=== PATIENT | male | born 1955 | race Caucasian/White ===

== ENCOUNTER 2018-09-02 14:23 | Inpatient (IN) ==
[2018-09-02] MEDS ORDERED: Ipratropium/Albuterol Neb 3 ML ONE (14:37)
[2018-09-02] MEDS ORDERED: Nitroglycerin 25 MG/250 ML INFUS..BTL IVC ONE (14:41)
[2018-09-02 14:48] LABS: ABG Base Excess -10 mEq/L (-2 to 3); ABG HCO3 20 mEq/L (21-27); ABG Oxygen Saturation 100 % (95-98); ABG PCO2 55 mmHg (35-45); ABG PH 7.17 pH Units (7.32-7.45); ABG PO2 314 mmHg (85-104); ABG TCO2 21 mEq/L (20-26)
[2018-09-02] MEDS ORDERED: Furosemide 40 MG/4 ML VIAL ONE (14:52)
[2018-09-02] MEDS ORDERED: Isovue-370 500 ML INFUS..BTL IV ONE ×2 (15:39→16:09)
[2018-09-02] MEDS ORDERED: Propofol 500 MG/50 ML INFUS..BTL ONE (15:54)
[2018-09-02 16:00] LABS: Basophils # 0.1 K/mcL (0.0-0.2); Basophils % 0.7 %; Eosinophils # 0.1 K/mcL (0.0-0.6); Eosinophils % 0.4 %; Immature Granulocytes % 1.3 % (0-4); Lymphocytes # 5.5 K/mcL (0.6-4.6); Lymphocytes % 35.9 %; Mean Corpuscular HGB Conc 34.3 g/dL (31.6-35.5); Mean Corpuscular Hemoglobin 33.7 pg (28.0-33.3); Mean Corpuscular Volume 98.2 fL (83.0-100.0); Mean Platelet Volume 10.9 fL (9.4-12.4); Monocytes % 6.4 %; Neutrophils # 8.5 K/mcL (1.6-8.9); Platelet Count 246 K/mcL (140-400); Red Blood Count 5.64 M/mcL (4.19-5.50); Red Cell Distribution Width 12.1 % (11.5-14.5); Segmented Neutrophils % 55.3 %
[2018-09-02 16:02] LABS: Hematocrit 55.4 % (37.5-50.1)
[2018-09-02 16:08] LABS: Prothrombin Time 10.7 Seconds (9.4-12.1)
[2018-09-02 16:11] LABS: Activated Partial Thrombo Time 31.1 Seconds (26.0-36.0)
--- NOTE | 2018-09-02 16:17 | Emergency Department Note ---
Disposition Clinical Impression: Hypertensive crisis, Pancreatic lesion, Atherosclerosis, Elevated troponin Pulmonary edema Qualifiers: Chronicity: acute Qualified Code(s): J81.0 - Acute pulmonary edema Acute respiratory failure Qualifiers: Respiratory failure complication: hypercapnia Qualified Code(s): J96.02 - Acute respiratory failure with hypercapnia Aortic aneurysm Qualifiers: Aortic location: abdominal aorta Presence of rupture: without rupture Qualified Code(s): I71.4 - Abdominal aortic aneurysm, without rupture Disposition: Admitted As Inpatient Condition: Critical Referrals: NONE,PCP [Primary Care Provider] - Forms: ED Satisfaction Letter SOB HPI - General Chief Complaint: ED Shortness of Breath/Dyspnea Stated Complaint: SHERI Time Seen by Provider: 09/02/18 14:24 Source: patient, EMS Mode of arrival: EMS Limitations: no limitations Nursing Notes Reviewed: Yes Vital Signs Reviewed: Yes - History of Present Illness 63-year-old male presents to the ER in respiratory distress via EMS. Called to bedside immediately upon patient arrival. The patient is noted to be in significant respiratory distress. The patient was moved to one of the resuscitation rooms. Nonrebreather applied. The patient reports acute shortness of breath developing this morning. He has a past history of hypertension for which she is noncompliant with his medications as well as smoking. He does not wear oxygen at home. Denies any prior history of CAD. No other complaints. Pt Subjective Complaint: shortness of breath Onset (ago): hour(s) Severity: severe Consistency/Duration: constant Improves with: nothing Worsens with: nothing Associated symptoms: Reports: denies other symptoms Cough present: No - Related Data Home oxygen amount: none Allergies Allergy/AdvReac Type Severity Reaction Status Date / Time No Known Allergies Allergy Verified 09/02/18 14:48 All systems ED: reviewed and negative except as stated. Constitutional: Denies: fever Cardiovascular: Denies: chest pain Respiratory: Reports: dyspnea. Denies: cough Gastrointestinal: Denies: abdominal pain, nausea, vomiting Past Medical History - Past Medical History Attestation: Yes The following information was validated with the patient. Source: patient Medical history: Reports: hypertension Psychiatric history: Reports: no psych history - Social History Smoking Status: Current every day smoker Smokeless Tobacco Status: No Alcohol use: Reports: occasionally, recent Drug use: Reports: unknown Physical Exam - General Limitations: no limitations General appearance: alert, in distress - Head Head exam: atraumatic, normocephalic, normal inspection - Eye Eye exam: Present: normal appearance - ENT ENT exam: normal exam - Neck Neck exam: Present: normal inspection - Chest Chest inspection: Present: normal inspection, symmetric chest wall rise - Respiratory Respiratory exam: Present: respiratory distress, accessory muscle use, other (Poor air exchange. Tripoding.) - Cardiovascular Cardiovascular exam: Present: normal rhythm, tachycardia, normal heart sounds - Abdominal Exam Abdominal exam: Present: soft, Non-Tender. Absent: tenderness, distention, guarding - Extremities Exam Extremities exam: Present: normal inspection, full ROM, other (Peripheral cyanosis) - Expanded Upper Extremity Exam Shoulder exam: Present: normal inspection, full ROM Arm exam: Present: normal inspection, full ROM Elbow exam: Present: normal inspection, full ROM Forearm/Wrist exam: Present: normal inspection, full ROM Hand exam: Present: normal inspection, full ROM Vascular exam: Normal: radial pulse - Expanded Lower Extremity Exam Hip/Pelvis exam: Present: normal inspection, full ROM Upper leg exam: Present: normal inspection, full ROM Knee exam: Present: normal inspection, full ROM Lower leg exam: Present: normal inspection, full ROM Ankle exam: Present: normal inspection, full ROM Foot/toe exam: Present: normal inspection, full ROM - Skin Skin exam: Present: warm, dry Course Course Narrative: Patient seen and examined immediately. Significant respiratory distress. Patient moved to resuscitation room. Respiratory therapy was called down for BiPAP. The patient was started on IV nitroglycerin after chest x-ray demonstrates pulmonary edema. Hypertension was aggressively managed. The patient did not improve after several minutes on BiPAP. ABG demonstrates respiratory acidosis. At this point the patient appeared to be tiring out and the decision was made to intubate. This was achieved on first pass without any complication. Plan to obtain an EKG, confirmatory chest x-ray, CTA imaging for evaluation of PE and dissection as well as labs. Patient given 40 mg of IV Lasix as well. The patient will be admitted to the intensive care unit for acute respiratory failure and acute pulmonary edema. - Reevaluation(s) Reevaluation #1: Patient's blood pressure has been improving with IV nitroglycerin. Awaiting CT imaging. Plan to admit to the intensive care unit. Reevaluation #2: Patient hypotensive with both propofol and nitroglycerin. Holding nitroglycerin and giving a small 250 mL bolus. Vital Signs Pulse Rate 128 09/02/18 14:34 Respiratory Rate 40 09/02/18 14:34 Blood Pressure 164/119 09/02/18 14:34 O2 Sat by Pulse Oximetry 97 09/02/18 14:34 Temperature 97 F L 09/02/18 14:48 Pulse Rate 113 09/02/18 18:39 Respiratory Rate 20 09/02/18 18:39 Blood Pressure 55/41 09/02/18 18:39 O2 Sat by Pulse Oximetry 96 09/02/18 18:39 Oxygen Delivery Oxygen Delivery Ventilator Procedures - Intubation sedative: Etomidate Mg Given: 20 paralytic: Rocuronium Mg Given: 100 Laryngoscope: Marylu ET Tube Size: 7.5 Tube Secured Depth (cm): 22 Tube Secured Location: lips Tube Placement Confirmation: visualized tube passing through cords, equal breath sounds bilaterally, no breath sounds over epigastrium, confirmation by capnometry Patient Tolerated Procedure: well Intubation Complications: none Additional Comments: Intubation performed by medical student under direct supervision Shortness of Breath/Dyspnea - MDM Narrative Medical decision making narrative: 63-year-old male presenting in respiratory distress. Concern for acute pulmonary edema given his noncompliance with his antihypertensives. Patient required intubation for respiratory failure. CT imaging demonstrates an aortic aneurysm without evidence of dissection. He is also noted to have an indiscrimi sneha lesion on his pancreas that will require follow-up. Labs demonstrated an elevated troponin as well as BNP felt to be demand in the setting of hypertensive crisis. Patient's hypertension has improved significantly with IV nitroglycerin. The patient is admitted to the intensive care unit for further monitoring. - Lab Data Lab results reviewed: Yes I reviewed the patient's lab results. Result diagrams: 09/02/18 14:42 09/02/18 14:42 Lab Results 09/02/18 09/02/18 09/02/18 Range/Units 14:42 14:42 14:42 WBC 15.4 H (4.3-11.1) K/mcL RBC 5.64 H (4.19-5.50) M/mcL Hgb 19.0 H (12.9-16.9) g/dL Hct 55.4 H (37.5-50.1) % MCV 98.2 (83.0-100.0) fL MCH 33.7 H (28.0-33.3) pg MCHC 34.3 (31.6-35.5) g/dL RDW 12.1 (11.5-14.5) % Plt Count 246 (140-400) K/mcL MPV 10.9 (9.4-12.4) fL Immature Gran % 1.3 (0-4) % Seg Neutrophils % 55.3 % Lymphocytes % 35.9 % Monocytes % 6.4 % Eosinophils % 0.4 % Basophils % 0.7 % Neutrophils # 8.5 (1.6-8.9) K/mcL Lymphocytes # 5.5 H (0.6-4.6) K/mcL Monocytes # 1.0 (0.0-1.3) K/mcL Eosinophils # 0.1 (0.0-0.6) K/mcL Basophils # 0.1 (0.0-0.2) K/mcL PT 10.7 (9.4-12.1) Seconds INR 1.0 APTT 31.1 (26.0-36.0) Seconds ABG pH (7.32-7.45) pH Units ABG pCO2 (35-45) mmHg ABG pO2 (85-104) mmHg ABG HCO3 (21-27) mEq/L ABG Total CO2 (20-26) mEq/L ABG O2 Saturation (95-98) % ABG Base Excess (-2 to 3) mEq/L O2 Delivery Device Inspired O2 (1-15=lpm [id number]=%) Sodium 130 L (136-145) mEq/L Potassium 3.9 (3.5-5.1) mEq/L Chloride 93 L (98-107) mEq/L Carbon Dioxide 20 L (23-29) mEq/L BUN 17 (8-23) mg/dL Creatinine 1.10 (0.70-1.30) mg/dL Est GFR ( Amer) > 60 (> 60) Est GFR (Non-Af Amer) > 60 (> 60) BUN/Creatinine Ratio 15 (6-26) Glucose 167 H (70-105) mg/dL Calculated Osmolality 275 L (280-300) Calcium 9.6 (8.6-10.3) mg/dL Troponin I 1.14 H* (< 0.04) ng/mL B-Natriuretic Peptide (Less than 100) pg/mL Lipase 82 (11-82) Units/L 09/02/18 09/02/18 Range/Units 14:42 14:44 WBC (4.3-11.1) K/mcL RBC (4.19-5.50) M/mcL Hgb (12.9-16.9) g/dL Hct (37.5-50.1) % MCV (83.0-100.0) fL MCH (28.0-33.3) pg MCHC (31.6-35.5) g/dL RDW (11.5-14.5) % Plt Count (140-400) K/mcL MPV (9.4-12.4) fL Immature Gran % (0-4) % Seg Neutrophils % % Lymphocytes % % Monocytes % % Eosinophils % % Basophils % % Neutrophils # (1.6-8.9) K/mcL Lymphocytes # (0.6-4.6) K/mcL Monocytes # (0.0-1.3) K/mcL Eosinophils # (0.0-0.6) K/mcL Basophils # (0.0-0.2) K/mcL PT (9.4-12.1) Seconds INR APTT (26.0-36.0) Seconds ABG pH 7.17 L* (7.32-7.45) pH Units ABG pCO2 55 H (35-45) mmHg ABG pO2 314 H (85-104) mmHg ABG HCO3 20 L (21-27) mEq/L ABG Total CO2 21 (20-26) mEq/L ABG O2 Saturation 100 H (95-98) % ABG Base Excess -10 L (-2 to 3) mEq/L O2 Delivery Device BiPAP Inspired O2 100.0 (1-15=lpm [id number]=%) Sodium (136-145) mEq/L Potassium (3.5-5.1) mEq/L Chloride (98-107) mEq/L Carbon Dioxide (23-29) mEq/L BUN (8-23) mg/dL Creatinine (0.70-1.30) mg/dL Est GFR ( Amer) (> 60) Est GFR (Non-Af Amer) (> 60) BUN/Creatinine Ratio (6-26) Glucose (70-105) mg/dL Calculated Osmolality (280-300) Calcium (8.6-10.3) mg/dL Troponin I (< 0.04) ng/mL B-Natriuretic Peptide 2227 H (Less than 100) pg/mL Lipase (11-82) Units/L - Radiology Data Radiology results reviewed: Yes I reviewed the patient's radiology results. Chest X-Ray 09/02/18 14:25 IMPRESSION: Bilateral airspace disease, most likely secondary to pulmonary edema and/or pneumonia. Radiographic follow-up to document resolution is recommended. D/ / Francisco J Palacio MD / Francisco J Palacio MD Interpreting Provider: Francisco J Palacio MD Abdomen/Pelvis CTA 09/02/18 15:39 IMPRESSION: 1. Pulmonary edema and small pleural effusions. 2. Lesion in the pancreatic tail. Differential includes acute pancreatitis versus pancreatic mass. 3. 3.4 cm saccular aneurysm of the infrarenal abdominal aorta. 4. 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 5. Multiple other moderate arterial stenoses throughout the chest abdomen and pelvis as above. 6. 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 7. No acute aortic abnormality. 8. No large pulmonary embolus. RECOMMENDATIONS: Consider nonemergent pancreatic mass protocol MRI with contrast. Managing Abdominal Aortic Aneurysms Recommend repeat imaging every 3 years. Reference: J Vasc Surg. 2009 Jun;50(4 Suppl):S2-49 D/ / Eros Baez MD / Eros Baez MD Interpreting Provider: Eros Baez MD Chest CTA 09/02/18 15:39 IMPRESSION: 1. Pulmonary edema and small pleural effusions. 2. Lesion in the pancreatic tail. Differential includes acute pancreatitis versus pancreatic mass. 3. 3.4 cm saccular aneurysm of the infrarenal abdominal aorta. 4. 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 5. Multiple other moderate arterial stenoses throughout the chest abdomen and pelvis as above. 6. 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 7. No acute aortic abnormality. 8. No large pulmonary embolus. RECOMMENDATIONS: Consider nonemergent pancreatic mass protocol MRI with contrast. Managing Abdominal Aortic Aneurysms Recommend repeat imaging every 3 years. Reference: J Vasc Surg. 2009 Jun;50(4 Suppl):S2-49 D/ / Eros Baez MD / Eros Baez MD Interpreting Provider: Eros Baez MD - EKG Data EKG attestation: Yes I reviewed and interpreted this EKG. EKG results narrative: EKG demonstrates sinus tachycardia with rate of 125. Right axis deviation. Prolonged QRS ration of 127. Other intervals normal. T-wave inversions in inferior leads. No gross ST elevations or depressions. No acute ischemic findings. [place] - [place] Situation: Demographics, MOA Background: Presenting Complaint, Relevant PMH, Meds, & Allergies Assessment: Vital Signs, Course and respsone to treatment, Exam Concerns, Patient/Family Expectation, Pertinant Lab Results Recommendation: Barrier(s) to disposition, Recommendation based on pending studies, treatments, or consults [place] Report Given to: Dr. Elijah Lincoln Repor Time: 18:30
[2018-09-02 16:24] LABS: Troponin I 1.14 ng/mL (< 0.04)
[2018-09-02 16:29] LABS: BUN/Creatinine Ratio 15 (6-26); Blood Urea Nitrogen 17 mg/dL (8-23); Calcium 9.6 mg/dL (8.6-10.3); Carbon Dioxide 20 mEq/L (23-29); Chloride 93 mEq/L (98-107); Glucose 167 mg/dL (70-105); Osmolality,Calculated 275 (280-300); Potassium 3.9 mEq/L (3.5-5.1); Sodium 130 mEq/L (136-145); eGFR For Non-African Americans > 60 (> 60)
[2018-09-02] MEDS ORDERED: Nitroglycerin 25 MG/250 ML INFUS..BTL IVC SCH (16:30)
--- NOTE | 2018-09-02 16:35 | Emergency Department Note ---
Disposition Clinical Impression: Hypertensive crisis Pulmonary edema Qualifiers: Chronicity: acute Qualified Code(s): J81.0 - Acute pulmonary edema Disposition: Admitted As Inpatient Condition: Critical Referrals: NONE,PCP [Primary Care Provider] - Forms: ED Satisfaction Letter General Adult HPI - General Chief complaint: ED Shortness of Breath/Dyspnea Stated complaint: SHERI Time Seen by Provider: 09/02/18 14:24 Source: patient, EMS Mode of arrival: EMS Limitations: no limitations - History of Present Illness Pain Scale: 0 - Related Data Allergies Allergy/AdvReac Type Severity Reaction Status Date / Time No Known Allergies Allergy Verified 09/02/18 14:48 Constitutional: Denies: fever Cardiovascular: Denies: chest pain Respiratory: Reports: dyspnea. Denies: cough Gastrointestinal: Denies: abdominal pain, nausea, vomiting Past Medical History - Past Medical History Medical history: Reports: hypertension Psychiatric history: Reports: no psych history - Social History Smoking Status: Current every day smoker Smokeless Tobacco Status: No Alcohol use: Reports: occasionally, recent Drug use: Reports: unknown Physical Exam - General Limitations: no limitations General appearance: alert, in distress Course Vital Signs Pulse Rate 128 09/02/18 14:34 Respiratory Rate 40 09/02/18 14:34 Blood Pressure 164/119 09/02/18 14:34 O2 Sat by Pulse Oximetry 97 09/02/18 14:34 Temperature 97 F L 09/02/18 14:48 Pulse Rate 125 09/02/18 16:28 Respiratory Rate 14 09/02/18 16:28 Blood Pressure 150/89 09/02/18 16:28 O2 Sat by Pulse Oximetry 95 09/02/18 16:28 Oxygen Delivery Oxygen Delivery Ventilator Medical Decision Making - Lab Data Result diagrams: 09/02/18 14:42 09/02/18 14:42 Lab Results 09/02/18 09/02/18 09/02/18 Range/Units 14:42 14:42 14:42 WBC 15.4 H (4.3-11.1) K/mcL RBC 5.64 H (4.19-5.50) M/mcL Hgb 19.0 H (12.9-16.9) g/dL Hct 55.4 H (37.5-50.1) % MCV 98.2 (83.0-100.0) fL MCH 33.7 H (28.0-33.3) pg MCHC 34.3 (31.6-35.5) g/dL RDW 12.1 (11.5-14.5) % Plt Count 246 (140-400) K/mcL MPV 10.9 (9.4-12.4) fL Immature Gran % 1.3 (0-4) % Seg Neutrophils % 55.3 % Lymphocytes % 35.9 % Monocytes % 6.4 % Eosinophils % 0.4 % Basophils % 0.7 % Neutrophils # 8.5 (1.6-8.9) K/mcL Lymphocytes # 5.5 H (0.6-4.6) K/mcL Monocytes # 1.0 (0.0-1.3) K/mcL Eosinophils # 0.1 (0.0-0.6) K/mcL Basophils # 0.1 (0.0-0.2) K/mcL PT 10.7 (9.4-12.1) Seconds INR 1.0 APTT 31.1 (26.0-36.0) Seconds ABG pH (7.32-7.45) pH Units ABG pCO2 (35-45) mmHg ABG pO2 (85-104) mmHg ABG HCO3 (21-27) mEq/L ABG Total CO2 (20-26) mEq/L ABG O2 Saturation (95-98) % ABG Base Excess (-2 to 3) mEq/L O2 Delivery Device Inspired O2 (1-15=lpm pu56-557=%) Sodium 130 L (136-145) mEq/L Potassium 3.9 (3.5-5.1) mEq/L Chloride 93 L (98-107) mEq/L Carbon Dioxide 20 L (23-29) mEq/L BUN 17 (8-23) mg/dL Creatinine 1.10 (0.70-1.30) mg/dL Est GFR ( Amer) > 60 (> 60) Est GFR (Non-Af Amer) > 60 (> 60) BUN/Creatinine Ratio 15 (6-26) Glucose 167 H (70-105) mg/dL Calculated Osmolality 275 L (280-300) Calcium 9.6 (8.6-10.3) mg/dL Troponin I 1.14 H* (< 0.04) ng/mL B-Natriuretic Peptide (Less than 100) pg/mL 09/02/18 09/02/18 Range/Units 14:42 14:44 WBC (4.3-11.1) K/mcL RBC (4.19-5.50) M/mcL Hgb (12.9-16.9) g/dL Hct (37.5-50.1) % MCV (83.0-100.0) fL MCH (28.0-33.3) pg MCHC (31.6-35.5) g/dL RDW (11.5-14.5) % Plt Count (140-400) K/mcL MPV (9.4-12.4) fL Immature Gran % (0-4) % Seg Neutrophils % % Lymphocytes % % Monocytes % % Eosinophils % % Basophils % % Neutrophils # (1.6-8.9) K/mcL Lymphocytes # (0.6-4.6) K/mcL Monocytes # (0.0-1.3) K/mcL Eosinophils # (0.0-0.6) K/mcL Basophils # (0.0-0.2) K/mcL PT (9.4-12.1) Seconds INR APTT (26.0-36.0) Seconds ABG pH 7.17 L* (7.32-7.45) pH Units ABG pCO2 55 H (35-45) mmHg ABG pO2 314 H (85-104) mmHg ABG HCO3 20 L (21-27) mEq/L ABG Total CO2 21 (20-26) mEq/L ABG O2 Saturation 100 H (95-98) % ABG Base Excess -10 L (-2 to 3) mEq/L O2 Delivery Device BiPAP Inspired O2 100.0 (1-15=lpm [id number]=%) Sodium (136-145) mEq/L Potassium (3.5-5.1) mEq/L Chloride (98-107) mEq/L Carbon Dioxide (23-29) mEq/L BUN (8-23) mg/dL Creatinine (0.70-1.30) mg/dL Est GFR ( Amer) (> 60) Est GFR (Non-Af Amer) (> 60) BUN/Creatinine Ratio (6-26) Glucose (70-105) mg/dL Calculated Osmolality (280-300) Calcium (8.6-10.3) mg/dL Troponin I (< 0.04) ng/mL B-Natriuretic Peptide 2227 H (Less than 100) pg/mL Attestation Statement - Attestation Attestation: I examined this patient and my medical decision-making was reviewed with the Resident Physician. I agree with the documented findings, disposition and treatment plan as described except to the extent set forth below. 63 year old male presented to the ED with complaints of respiratoroy distress and appears to be tripoding at bedside and we have moved him to the critical care bed as he appaers to be in distress and likley need to be intubatedd. Mulugeta was trialed on bipap wiht nitro and lasix therpy as he appeared to be in pulmonary edema. At that time there does not appear to be any medical histroy that we can obtain but supports the medical history that he is noncompliant with his HTN medication and has a smoking history. He most recently started to complain about bilateral leg pain over the last few motnhs and was having more difficulty walking but never complained of chest or abdominal pain. Mulugeta was trialed on bipap and nitro and lasix and began to tire out. We intubatd at bedside and will workup from a cardiopulmonary and admitted to ICU
[2018-09-02] MEDS ORDERED: *HR* Midazolam HCl 2 MG/2 ML VIAL IVP ONE ×2 (17:59→19:05)
[2018-09-02] MEDS: *HR* Midazolam HCl 5 MG/5 ML VIAL IVP ONE ×2 (18:29→19:38)
[2018-09-02] MEDS ORDERED: 0.9 % Sodium Chloride 250 ML ONE (18:37)
[2018-09-02 18:39] LABS: Lipase 82 Units/L (11-82)
[2018-09-02] MEDS ORDERED: 0.9 % Sodium Chloride 1,000 ML ONE ×5 (19:05→22:50)
[2018-09-02] MEDS: FentaNYL (PF) 1,000 MCG in 0.9 % Sodium Chloride 80 ML IVC SCH (19:12)
[2018-09-02] MEDS ORDERED: *HR* Midazolam HCl 5 MG/5 ML VIAL IVP ONE (19:35)
[2018-09-02] MEDS ORDERED: Naloxone 0.4 MG/ML INJ IVP PRN ×2 (20:36→22:19)
[2018-09-02] MEDS ORDERED: Artificial Tears SOLN 15 ML BOTTLE BOTH EYES PRN (20:38)
[2018-09-02] MEDS ORDERED: Dexmedetomidine HCl 400 MCG/100 ML MLS IVC ONE (20:59)
[2018-09-02] MEDS: Dexmedetomidine HCl 400 MCG/100 ML MLS IVC SCH ×2 (21:00→22:12)
[2018-09-02 21:10] LABS: ABG Base Excess -7 mEq/L (-2 to 3); ABG HCO3 21 mEq/L (21-27); ABG Oxygen Saturation 98 % (95-98); ABG PCO2 47 mmHg (35-45); ABG PH 7.25 pH Units (7.32-7.45); ABG PO2 113 mmHg (85-104); ABG TCO2 22 mEq/L (20-26); Blood Gas Modality ASSIST CONTROL; Blood Gas PEEP 5 cm H2O; Blood Gas Respiration Rate 16; Blood Gas VT 460 cc
[2018-09-02] MEDS ORDERED: *HR* Heparin 5,000 UNIT/ML VIAL IVP ONE (21:25)
[2018-09-02] MEDS ORDERED: *HR* Heparin 5,000 UNIT/ML VIAL IVP PRN ×2 (21:25)
[2018-09-02] MEDS ORDERED: Heparin 25,000 UNIT/500 ML D5W 25,000 UNIT/500 ML BAG IVC SCH (21:30)
[2018-09-02 21:48] LABS: Basophils % 0.2 %; Eosinophils % 0.3 %; Hematocrit 41.5 % (37.5-50.1); Immature Granulocytes % 0.7 % (0-4); Lymphocytes # 0.9 K/mcL (0.6-4.6); Lymphocytes % 8.4 %; Mean Corpuscular HGB Conc 34.5 g/dL (31.6-35.5); Mean Corpuscular Hemoglobin 33.8 pg (28.0-33.3); Mean Corpuscular Volume 98.1 fL (83.0-100.0); Mean Platelet Volume 10.2 fL (9.4-12.4); Monocytes # 0.5 K/mcL (0.0-1.3); Monocytes % 5.1 %; Platelet Count 166 K/mcL (140-400); Red Blood Count 4.23 M/mcL (4.19-5.50); Red Cell Distribution Width 12.1 % (11.5-14.5); Segmented Neutrophils % 85.3 %
[2018-09-02] MEDS: 0.9 % Sodium Chloride 1,000 ML IVC ONE ×3 (21:51→23:00)
[2018-09-02 21:57] LABS: Hemoglobin 14.3 g/dL (12.9-16.9)
[2018-09-02 21:59] LABS: INR 1.1; Prothrombin Time 12.3 Seconds (9.4-12.1)
[2018-09-02 22:10] LABS: Troponin I 3.71 ng/mL (< 0.04)
[2018-09-02] MEDS: Chlorhexidine Rinse 15 ML MOUTHWASH MM SCH (22:13)
--- NOTE | 2018-09-02 22:15 | Internal Med History&Physical ---
<Abhilash Hurt T - Last Filed: 09/02/18 23:16> Date of Encounter: 09/02/18 Time of Encounter: 21:40 Internal Medicine - H&P: HPI Chief complaint: Respiratory Distress History of present illness: Mr. Kc is a 63 year old male here for signficant respiratory distress secondary to pulmonary edema. History was taken from patient's . said patient began having difficulty breathing around 2PM today and asked to call 911. He also was complaining of neck pain at the time. At ED his vitals were: P: 128, RR 40, BP, 164/119, O2 Sat 97% on oxygen. He was given a CXR and CTA ab/pelvis which showed pulmonary edema, infrarenal abdominal aortic aneurysm 3.4cm, and b/l occlusions in iliac arteries. Troponins were elevated at 1.14 and BNP was elevated at 2227. Intial EKG done around [address] changes. ABG at ED showed acidosis 7.17 and pCO2 55. In ICU patient was hypotensive at 90s/60s was ordered 2L NS. Central line placed for BP monitoring. Repeat EKG done at 9PM in ICU showed ST elevations and cardiology was consulted. They requested that stat echo be placed and they will see him tonight. Patient does not see doctors and his only known medical history was being treated for HTN years ago but not on any meds currently, abdominal hernia treated several years ago, and enlarged testicle.His states patient becomes SOB with pain in his legs after walking. He is able to sleep laying flat on his back without becoming SOB. No history of CAD. Patient is a smoker for over 50 years. Patient drink 4-5 drinks per day: 2-3 beers and 1-2 hard liquor. Past Med Surg Social Fam HX - Past Medical History Medical history: hypertension Psychiatric history: no psych history - Social History Smoking Status: Current every day smoker Smokeless Tobacco Status: No Alcohol use: heavy, recent Drug use: unknown Internal Medicine - H&P: Meds No Known Home Drugs 09/02/18 [History] Allergy/AdvReac Type Severity Reaction Status Date / Time No Known Allergies Allergy Verified 09/02/18 20:02 ROS unobtainable: due to endotracheal tube All Systems PM: A 10-system review of systems was performed and is negative for pertinent findings except as documented above in the HPI. - Constitutional Vitals: Temp Pulse Resp BP Pulse Ox 97 F L 108 22 97/78 100 09/02/18 14:48 09/02/18 20:10 09/02/18 20:23 09/02/18 20:15 09/02/18 20:23 General appearance: Present: A&O X 0, severe distress Exam: . - Head Head exam: Present: atraumatic, normal inspection - Eye Eye exam: Present: EOMI - Neck Neck exam general surgery: Present: supple, trachea midline - Respiratory Respiratory exam: Present: accessory muscle use, rales, respiratory distress, rhonchi, wheezes. Absent: CTAB - Cardiovascular Cardiovascular exam: Present: RRR, +S1, +S2 - Extremities Exam Extremities exam: Present: normal inspection - Neurological Exam Neurological exam: Present: altered - Skin Skin exam: Present: dry, intact, warm Internal Med - H&P Results - Labs CBC & Chem 7: 09/02/18 21:28 09/02/18 14:42 Labs: Short CBC 09/02/18 Range/Units 14:42 WBC 15.4 H (4.3-11.1) K/mcL Hgb 19.0 H (12.9-16.9) g/dL Hct 55.4 H (37.5-50.1) % Plt Count 246 (140-400) K/mcL Neutrophils # 8.5 (1.6-8.9) K/mcL BMP 09/02/18 14:42 Sodium 130 L Potassium 3.9 Chloride 93 L Carbon Dioxide 20 L BUN 17 Creatinine 1.10 Glucose 167 H Calcium 9.6 Cardiac Enzymes 09/02/18 Range/Units 14:42 Troponin I 1.14 H* (< 0.04) ng/mL - ABG Interpretation ABG results: 09/02/18 09/02/18 14:44 21:06 ABG pH 7.17 L* 7.25 L ABG pCO2 55 H 47 H ABG pO2 314 H 113 H ABG HCO3 20 L 21 ABG Total CO2 21 22 ABG O2 Saturation 100 H 98 ABG Base Excess -10 L -7 L - Impressions ITS Impressions Chest X-Ray 09/02/18 00:00 IMPRESSION: Endotracheal tube tip is approximately 1.6 cm above the ines. Otherwise stable chest from earlier today. D/ / Aretha Adams MD / Aretha Adams MD Interpreting Provider: Aretha Adams MD Chest X-Ray 09/02/18 14:25 IMPRESSION: Bilateral airspace disease, most likely secondary to pulmonary edema and/or pneumonia. Radiographic follow-up to document resolution is recommended. D/ / Francisco J Palacio MD / Francisco J Palacio MD Interpreting Provider: Francisco J Palacio MD Abdomen/Pelvis CTA 09/02/18 15:39 IMPRESSION: 1. Pulmonary edema and small pleural effusions. 2. Lesion in the pancreatic tail. Differential includes acute pancreatitis versus pancreatic mass. 3. 3.4 cm saccular aneurysm of the infrarenal abdominal aorta. 4. 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 5. Multiple other moderate arterial stenoses throughout the chest, abdomen and pelvis as above. 6. 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 7. No acute aortic abnormality. 8. No large pulmonary embolus. RECOMMENDATIONS: Consider nonemergent pancreatic mass protocol MRI with contrast. Managing Abdominal Aortic Aneurysms Recommend repeat imaging every 3 years. Reference: J Vasc Surg. 2009 Jun;50(4 Suppl):S2-49 D/ /02/2018 18:30:25 Eros Baez MD / [facility] Interpreting Provider: Eros Baez MD Chest CTA 09/02/18 15:39 IMPRESSION: 1. Pulmonary edema and small pleural effusions. 2. Lesion in the pancreatic tail. Differential includes acute pancreatitis versus pancreatic mass. 3. 3.4 cm saccular aneurysm of the infrarenal abdominal aorta. 4. 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 5. Multiple other moderate arterial stenoses throughout the chest, abdomen and pelvis as above. 6. 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 7. No acute aortic abnormality. 8. No large pulmonary embolus. RECOMMENDATIONS: Consider nonemergent pancreatic mass protocol MRI with contrast. Managing Abdominal Aortic Aneurysms Recommend repeat imaging every 3 years. Reference: J Vasc Surg. 2009 Jun;50(4 Suppl):S2-49 D/ /02/2018 18:30:25 Eros Baez MD / [facility] Interpreting Provider: Eros Baez MD - Assessment and plan (1) Hypertensive crisis Current Visit: Yes Status: Acute Assessment and plan: 63 YO M presenting with HTN of 170s/110s with difficulty breathing. He was given nitroglycerin, midazolam, fentanyl at ED. - In ICU patient is currently hypotensive ranging from 60/45 to 97/78. He was ordered 2L of IVF + Noprepi - Patient's WBC was 15.4 - appeared to be volume depleted gave 1L NS and improved to 10.5 - Arterial line placed to monitor BP (2) Pulmonary edema Current Visit: Yes Status: Acute Assessment and plan: Patient is in respiratory distress on ventilator. -Patient became agitated and tried to remove tube - Precedex ordered - Based on elevated troponin and EKG with ST elevation considering cardiac etiology for patient's plumonary edema. Consulted cardiology and they requested stat echo. - ABG at ED done at 14:44, repeat done at 21:28 after intubation and NS. H is improving 7.17 to 7.25, pCO3 improving 54 to 48, bicarb improving 20 to 21. Next one ordered from 00:30AM. Qualifiers: Chronicity: acute Qualified Code(s): J81.0 - Acute pulmonary edema (3) Elevated troponin Current Visit: Yes Status: Acute Assessment and plan: Patient has EKG with ST elevation and elevated trops - considering ACS as cause. Consulted cardiology and they will see him. Asked to order stat echo will follow up. Repeat troponins ordered Q6. Aspirin ordered. Heparin ordered. (4) Acute respiratory failure Current Visit: Yes Status: Acute Assessment and plan: Patient intubated. Qualifiers: Respiratory failure complication: hypercapnia Qualified Code(s): J96.02 - Acute respiratory failure with hypercapnia (5) Pancreatic lesion Current Visit: Yes Status: Acute Assessment and plan: Patient has history of drinking 3-5 drinks per day. Lipase normal - most likely no acute pancreatitis. (6) Aortic aneurysm Current Visit: Yes Status: Acute Assessment and plan: Incidental aortic saccular anuerysm 3.5 cm found. No acute therapy indicated at this time. Qualifiers: Aortic location: abdominal aorta Presence of rupture: without rupture Qualified Code(s): I71.4 - Abdominal aortic aneurysm, without rupture - Time Spent With Patient Total time spent is greater than 50% in coordination of care (as documented) at patient's floor/unit and/or counseling patient: <Humera Ha - Last Filed: 09/03/18 06:54> Date of Encounter: 09/02/18 Internal Medicine - H&P: HPI History of present illness: Mr. Kc is a 63 year old male All Systems PM: A 10-system review of systems was performed and is negative for pertinent findings except as documented above in the HPI. - Constitutional Vitals: Temp Pulse Resp BP Pulse Ox 97.5 F L 73 27 121/66 94 09/03/18 04:40 09/03/18 06:00 09/03/18 06:06 09/03/18 06:06 09/03/18 06:06 Internal Med - H&P Results - Labs CBC & Chem 7: 09/03/18 03:55 09/03/18 03:55 Labs: Short CBC 09/02/18 09/02/18 09/03/18 Range/Units 14:42 21:28 03:55 WBC 15.4 H 10.5 16.2 H D (4.3-11.1) K/mcL Hgb 19.0 H 14.3 D 15.4 (12.9-16.9) g/dL Hct 55.4 H 41.5 44.3 (37.5-50.1) % Plt Count 246 166 209 (140-400) K/mcL Neutrophils # 8.5 9.0 H 13.5 H (1.6-8.9) K/mcL BMP 09/02/18 09/03/18 14:42 03:55 Sodium 130 L 129 L Potassium 3.9 5.9 H D Chloride 93 L 104 Carbon Dioxide 20 L 16 L BUN 17 21 Creatinine 1.10 1.06 Glucose 167 H 218 H Calcium 9.6 6.7 L Cardiac Enzymes 09/02/18 09/02/18 09/03/18 Range/Units 14:42 21:28 03:55 Troponin I 1.14 H* 3.71 H* 3.66 H* (< 0.04) ng/mL Liver Function 09/03/18 Range/Units 03:55 Total Bilirubin 1.2 H (0.3-1.0) mg/dL AST 77 H (13-39) Units/L ALT 53 H (7-52) Units/L Alkaline Phosphatase 47 (34-104) Units/L Albumin 3.1 L (3.5-5.7) g/dL - ABG Interpretation ABG results: 09/02/18 09/02/18 09/03/18 14:44 21:06 04:50 ABG pH 7.17 L* 7.25 L 7.26 L ABG pCO2 55 H 47 H 37 ABG pO2 314 H 113 H 120 H ABG HCO3 20 L 21 17 L ABG Total CO2 21 22 18 L ABG O2 Saturation 100 H 98 98 ABG Base Excess -10 L -7 L -10 L - Impressions ITS Impressions Chest X-Ray 09/02/18 00:00 IMPRESSION: Endotracheal tube tip is approximately 1.6 cm above the ines. Otherwise stable chest from earlier today. D/ / Aretah Adams MD / Aretha Adams MD Interpreting Provider: Aretha Adams MD Chest X-Ray 09/02/18 14:25 IMPRESSION: Bilateral airspace disease, most likely secondary to pulmonary edema and/or pneumonia. Radiographic follow-up to document resolution is recommended. D/ / Francisco J Palacio MD / Francisco J Palacio MD Interpreting Provider: Francisco J Palacio MD Abdomen/Pelvis CTA 09/02/18 15:39 IMPRESSION: 1. Pulmonary edema and small pleural effusions. 2. Lesion in the pancreatic tail. Differential includes acute pancreatitis versus pancreatic mass. 3. 3.4 cm saccular aneurysm of the infrarenal abdominal aorta. 4. 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 5. Multiple other moderate arterial stenoses throughout the chest, abdomen and pelvis as above. 6. 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 7. No acute aortic abnormality. 8. No large pulmonary embolus. RECOMMENDATIONS: Consider nonemergent pancreatic mass protocol MRI with contrast. Managing Abdominal Aortic Aneurysms Recommend repeat imaging every 3 years. Reference: J Vasc Surg. 2008;50(4 Suppl):S2-49 D/ /02/2018 18:30:25 Eros Baez MD / [facility] Interpreting Provider: Eros Baez MD Chest CTA 09/02/18 15:39 IMPRESSION: 1. Pulmonary edema and small pleural effusions. 2. Lesion in the pancreatic tail. Differential includes acute pancreatitis versus pancreatic mass. 3. 3.4 cm saccular aneurysm of the infrarenal abdominal aorta. 4. 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 5. Multiple other moderate arterial stenoses throughout the chest, abdomen and pelvis as above. 6. 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 7. No acute aortic abnormality. 8. No large pulmonary embolus. RECOMMENDATIONS: Consider nonemergent pancreatic mass protocol MRI with contrast. Managing Abdominal Aortic Aneurysms Recommend repeat imaging every 3 years. Reference: J Vasc Surg. 2008;50(4 Suppl):S2-49 D/ /02/2018 18:30:25 Eros Baez MD / [facility] Interpreting Provider: Eros Baez MD - Assessment and plan (1) Hypertensive crisis Current Visit: Yes Status: Acute (2) Pulmonary edema Current Visit: Yes Status: Acute Qualifiers: Chronicity: acute Qualified Code(s): J81.0 - Acute pulmonary edema (3) Pancreatic lesion Current Visit: Yes Status: Acute (4) Elevated troponin Current Visit: Yes Status: Acute (5) Acute respiratory failure Current Visit: Yes Status: Acute Qualifiers: Respiratory failure complication: hypercapnia Qualified Code(s): J96.02 - Acute respiratory failure with hypercapnia (6) Aortic aneurysm Current Visit: Yes Status: Acute Qualifiers: Aortic location: abdominal aorta Presence of rupture: without rupture Qualified Code(s): I71.4 - Abdominal aortic aneurysm, without rupture - Time Spent With Patient Total time spent is greater than 50% in coordination of care (as documented) at patient's floor/unit and/or counseling patient: - Attending Attestation I performed a history and physical examination of the patient and discussed his management with the resident. I reviewed the resident's note and plan of care. In short patient is a 63-year-old male with past medical history of hyper tension, chronic smoking and daily alcohol use who has not followed with a physician for many years and is not currently on any medications, who presented to the ED after developing acute shortness of breath. In the ED patient was hypertensive with a reported systolic blood pressure greater than 200 and was intubated due to acute respiratory failure presumably due to pulmonary edema after failing a trial of BiPAP. Patient received 7 mg of Versed and placed on a fentanyl drip as he was agitated and combative in the ED. During my initial assessment patient was again agitated and combative. He was given 10 mg of propofol for sedation after which patient became hypotensive with a systolic blo od pressure in the 80s and at times down to the 60s. Laboratory findings were notable for a troponin of 1.14 and BNP of greater than 2000. A repeat EKG was performed which was concerning for ischemia. I initially discussed the case with Dr. Garner due to concern the patient may have had a cardiac event which precipitated flash pulmonary edema. Dr. Garner reviewed the EKG and recommended supporting the patient's blood pressure with fluids and pressors, starting the patient on heparin and referred the case over to Dr. Sandhu. Dr. Coyle subsequently placed a left femoral central catheter and Levaquin was started shortly thereafter. Patient was also transitioned off propofol and plac ed on Precedex in addition to fentanyl due to his hypotension. I discussed the case with Dr. Sandhu who felt that patient's hypotension was most likely due to sedation than cardiogenic shock. A stat echo was performed which demonstrated global hypokinesis with a ejection fraction of 10%. Echo was again reviewed with Dr. Sandhu who feels this to be a chronic condition rather than an acute event given the patient's history of chronic alcohol use and complete lack of any follow-up with a primary care physician for many years. At this time fluids were discontinued and patient's blood pressure remained stable on a low dose of norepinephrine. At this time we will continue to monitor for signs of alcohol withdrawal, support patient's blood pressure as needed and trend troponin. We will continue with heparin drip. Rectal aspirin ordered. Pulmonary critical care and cardiology consulted. Over 45 minutes of critical care time was spent in the management of this patient.
[2018-09-02] MEDS ORDERED: 0.9 % Sodium Chloride 500 ML IVC PRN ×2 (22:37→23:16)
[2018-09-02] MEDS ORDERED: Norepinephrine 4 MG in D5% in Water 250 ML IVC SCH (22:45)
[2018-09-02 22:47] LABS: Ethanol 62 mg/dL (Less than 10)
[2018-09-02 22:48] LABS: Magnesium 1.2 mg/dL (1.6-2.6); Phosphorous 5.1 mg/dL (2.7-4.5)
--- NOTE | 2018-09-02 22:49 | Procedure Note ---
Date of procedure: 09/02/18 Pre-op diagnosis: cardiogenic shock Post-op diagnosis: same Procedure: Procedure: Left Femoral Vein CVC placement I was asked by Dr. Ha to place a central line emergently for cardiogenic shock on this patient who was intubated and likely going for a heart catheterization for possible STEMI. I came to the bedside and spoke with patient's and his primary nurse Terese. Consent was given verbally by and witnessed by RN. I then prepped and draped patient in sterile fashion in the left groin site. Timeout was called and we properly identified patient, site, and indication for procedure. After properly sterilizing the site, I locally anesthetized his left groin with 1% lidocaine. Using Seldinger technique, I successfully aspirated and cannulated the left femoral vein on the second attempt. I threaded the guidewire through large-bore needle and then removed the needle intact. I then made a small incision at the site and used a dilator over the guidewire to dilate the vein. Dilator was then removed. I then threaded the triple-lumen catheter over the guidewire and removed the guidewire intact. All 3 ports were successfully aspirated of blood and flushed with normal saline. I then sutured the triple lumen catheter in place using the provided silk suture. He tolerated procedure well with minimal blood loss. Anesthesia: IV sedation Surgeon: Randy Coyle Was there an commercial lines account assistant present: No Estimated blood loss (cc): 10 Specimen: none Condition: critical Disposition: ICU
[2018-09-02] MEDS ORDERED: Perflutren Lipid Microsphere 1.3 ML in 0.9 % Sodium Chloride 8.7 ML IVP ONE (23:25)
[2018-09-02] MEDS ORDERED: Perflutren Lipid Microsphere 2 ML VIAL ONE (23:30)
[2018-09-03] MEDS: Norepinephrine 4 MG in D5% in Water 250 ML IVC SCH ×2 (00:21→05:51)
[2018-09-03] MEDS: Artificial Tears SOLN 15 ML BOTTLE BOTH EYES SCH ×3 (00:33→08:05)
[2018-09-03] MEDS ORDERED: *HR* Midazolam HCl 2 MG/2 ML VIAL ONE (00:53)
[2018-09-03] MEDS ORDERED: *HR* Midazolam HCl 2 MG/2 ML VIAL IVP ONE (01:00)
[2018-09-03] MEDS ORDERED: *HR* LORazepam 2 MG/ML VIAL IVP PRN ×3 (02:38)
--- NOTE | 2018-09-03 02:42 | Cardiology Consult Note ---
Date of Encounter: 09/03/18 Time of Encounter: 02:21 Assessment and Plan (1) Alcohol withdrawal delirium, acute, hyperactive Current Visit: Yes Status: Acute Severe combative behavior likely alcohol withdrawal requiring significant sedation hence low blood pressure and heart rate on levophed managed by primary team. Possible pancreatitis on CT of abdomen may pose a risk for IV contrast and bleed from heparin defer to primary team. LHC when stable and safe (2) Elevated troponin Current Visit: Yes Status: Acute Possible acute event however troponins do not correlate with significance of LV systolic dysfunction therefore likely secondary to volume overload and subacute severe LV systolic dysfunction from alcohol cardio myopathy versus severe three- vessel disease. IV heparin and aspirin when safe, defer to primary team. LHC when stable from withdrawal. Consider LHC earlier if significant elevation in troponins indicating acute MT. EKG suggestive of underlying ischemia which may be demand ischemia due to hypotension from excessive sedation required (3) Acute respiratory failure Current Visit: Yes Status: Acute Volume overload with severe LV systolic dysfunction versus hypertensive cardiomyopathy versus alcohol cardiomyopathy. Patient currently sedated on the vent management primary team Qualifiers: Respiratory failure complication: hypercapnia Qualified Code(s): J96.02 - Acute respiratory failure with hypercapnia Discussion w patient/family: The assessment and plan as outlined above was discussed with the patient and/or family members who expressed understanding and agreement. All questions were answered. Thank you for involving us in the care of your patient. Please call with any questions. History of Present Illness Consult date: 09/03/18 Chief complaint: SOB History of present illness: Mr. Kc is a 63 year old male with no significant known cardiac risk factors presents [facility] with respiratory failure status post intubation acquiring heavy sedation due to combative behavior. Patient has elevated alcohol level of 62 admits to heavy drinking. Patient currently intubated and sedated on the ventilator therefore history is obtained from chart review. According to initial presentation patient was not complaining of chest pain however was significantly short of breath associated with findings of pulmonary edema. CT of the chest/abdomen revealed possible pancreatitis with significant peripheral artery disease noted as well. EKG shows ST changes suggestive of ischemia with an echocardiogram obtained revealing severe LV systolic dysfunction. Initial troponin of 1.0 and 7 hours later at 3.4 does not correlate with significance of LV systolic dysfunction. Likely the patient has possible severe three-vessel disease versus alcohol cardiomyopathy and presented with volume overload. His BNP is above 2000 with a troponin of 1.0. Patient has constantly required high doses of sedation and intermittently awakens and is combative and fairly aggressive with a high associated blood pressure. Patient requires heavy sedation to control his behavior which ultim ately leads to a drop his blood pressure. Currently he is on Levophed for blood pressure support. Patient likely would require an ischemic workup and and LHC when stable. Currently with possible pancreatitis, alcohol withdrawal and combative behavior patient poses a higher risk than benefit at this time. This in the setting of a mild to moderate elevation of troponins not correlating to significance of his LV systolic dysfunction (likely more chronic than acute). Would recommend however ACS medications such as heparin when stable and safe from both his possible pancreatitis and combative behavior. Aspirin also is recommended which can be administered rectally. Past Med Surg Social Fam HX - Past Medical History Medical history: hypertension Psychiatric history: no psych history - Social History Smoking Status: Current every day smoker Smokeless Tobacco Status: No Alcohol use: heavy, recent Drug use: unknown Medications and Allergies No Known Home Drugs 09/02/18 [History] Allergy/AdvReac Type Severity Reaction Status Date / Time No Known Allergies Allergy Verified 09/02/18 20:02 All Systems Review: The remainder of the systems were reviewed and are negative Physical Examination Vital Signs, Last 4 Hours Temp Pulse Resp BP Pulse Ox 09/03/18 01:20 71 09/03/18 01:00 77 16 87/55 95 09/03/18 00:16 16 82/55 100 09/03/18 00:12 96.7 F L 09/03/18 00:00 79 16 123/69 99 09/02/18 23:00 82 16 87/66 99 General: Conversant, No Apparent Distress HEENT: Atraumatic, Normocephaly, Mucus Membranes Moist Neck: No JVD, Normal carotid pulses Cardiac: Reg Rate and Rhythm, Normal S1 and S2, No Murmur Lungs: Normal Breath Sounds, No Wheeze, Rales, Rhonchi Neuro: Alert and responsive, No focal deficits noted Abdomen: Soft, Non-Tender Skin: No rashes noted on visualized skin Musculoskeletal: No Chest Wall Tenderness Extremities: No Clubbing, No Cyanosis, No Edema, Normal Pulses Results 09/02/18 21:28 09/02/18 14:42 Lab Results 09/02/18 09/02/1809/02/18 14:42 14:42 14:42 WBC 15.4 H Hgb 19.0 H Hct 55.4 H Plt Count 246 INR 1.0 APTT 31.1 Sodium 130 L Potassium 3.9 Chloride 93 L Carbon Dioxide 20 L BUN 17 Creatinine 1.10 Glucose 167 H Calcium 9.6 Magnesium Troponin I 1.14 H* B-Natriuretic Peptide Lipase 82 09/02/18 09/02/18 09/02/18 14:42 21:28 21:28 WBC 10.5 Hgb 14.3 D Hct 41.5 Plt Count 166 INR APTT Sodium Potassium Chloride Carbon Dioxide BUN Creatinine Glucose Calcium Magnesium 1.2 L Troponin I 3.71 H* B-Natriuretic Peptide 2227 H Lipase 09/02/18 21:28 WBC Hgb Hct Plt Count INR 1.1 APTT Sodium Potassium Chloride Carbon Dioxide BUN Creatinine Glucose Calcium Magnesium Troponin I B-Natriuretic Peptide Lipase Consult Discharge Plan - Plan Referrals: NONE,PCP [Primary Care Provider] -
[2018-09-03 04:06] LABS: Basophils % 0.2 %; Hematocrit 44.3 % (37.5-50.1); Hemoglobin 15.4 g/dL (12.9-16.9); Immature Granulocytes % 0.5 % (0-4); Lymphocytes # 1.6 K/mcL (0.6-4.6); Mean Corpuscular HGB Conc 34.8 g/dL (31.6-35.5); Mean Corpuscular Hemoglobin 33.6 pg (28.0-33.3); Mean Corpuscular Volume 96.5 fL (83.0-100.0); Mean Platelet Volume 10.3 fL (9.4-12.4); Monocytes # 0.9 K/mcL (0.0-1.3); Monocytes % 5.8 %; Neutrophils # 13.5 K/mcL (1.6-8.9); Platelet Count 209 K/mcL (140-400); Red Blood Count 4.59 M/mcL (4.19-5.50); Red Cell Distribution Width 12.2 % (11.5-14.5); Segmented Neutrophils % 83.5 %
[2018-09-03 04:16] LABS: INR 1.1; Prothrombin Time 12.2 Seconds (9.4-12.1)
[2018-09-03 04:29] LABS: Alanine Aminotransferase 53 Units/L (7-52); Albumin 3.1 g/dL (3.5-5.7); Albumin/Globulin Ratio 1.3 (1.1-2.2); Alkaline Phosphatase 47 Units/L (34-104); Aspartate Amino Transferase 77 Units/L (13-39); BUN/Creatinine Ratio 20 (6-26); Bilirubin,Total 1.2 mg/dL (0.3-1.0); Blood Urea Nitrogen 21 mg/dL (8-23); Calcium 6.7 mg/dL (8.6-10.3); Carbon Dioxide 16 mEq/L (23-29); Chloride 104 mEq/L (98-107); Chol/HDL Ratio 1.8 (0-4.9); Cholesterol 98 mg/dL (< 200); Globulin 2.3 g/dL (2.4-3.5); Glucose 218 mg/dL (70-105); HDL Cholesterol 54 mg/dL (40-59); LDL Cholesterol,Calculated 29 mg/dL (0-99); Magnesium 1.5 mg/dL (1.6-2.6); Osmolality,Calculated 278 (280-300); Phosphorous 4.3 mg/dL (2.7-4.5); Potassium 5.9 mEq/L (3.5-5.1); Sodium 129 mEq/L (136-145); Total Protein 5.4 g/dL (6.4-8.9); Triglycerides 76 mg/dL (< 150); eGFR For Non-African Americans > 60 (> 60)
[2018-09-03] MEDS ORDERED: *HR* Dextrose 50 % in Water (Syg) 50 ML SYRINGE IVP PRN (04:36)
[2018-09-03] MEDS ORDERED: D5% in Water 1,000 ML IVC PRN (04:36)
[2018-09-03] MEDS ORDERED: Dextrose Gel 15 GM/37.5 ML TUBE PO PRN ×2 (04:36)
[2018-09-03 04:55] LABS: ABG Base Excess -10 mEq/L (-2 to 3); ABG HCO3 17 mEq/L (21-27); ABG Oxygen Saturation 98 % (95-98); ABG PCO2 37 mmHg (35-45); ABG PH 7.26 pH Units (7.32-7.45); ABG PO2 120 mmHg (85-104); ABG TCO2 18 mEq/L (20-26); Blood Gas Modality ASSIST CONTROL; Blood Gas PEEP 5 cm H2O; Blood Gas Respiration Rate 16; Blood Gas VT 460 cc
[2018-09-03] MEDS: FentaNYL (PF) 1,000 MCG in 0.9 % Sodium Chloride 80 ML IVC SCH (05:38)
[2018-09-03] MEDS ORDERED: Insulin LISPRO 300 UNITS/3 ML VIAL SQ SCH (06:00)
[2018-09-03 07:45] LABS: Estimated Average Glucose 108 mg/dl; Hemoglobin A1C 5.4 %
[2018-09-03] MEDS: Dexmedetomidine HCl 400 MCG/100 ML MLS IVC SCH (08:05)
[2018-09-03] MEDS: Chlorhexidine Rinse 15 ML MOUTHWASH MM SCH (08:06)
--- NOTE | 2018-09-03 08:22 | Pulmonology Consult Note ---
<Jonathan George W - Last Filed: 09/03/18 11:43> Date of Encounter: 09/03/18 Medications and Allergies No Known Home Drugs 09/02/18 [History] Allergy/AdvReac Type Severity Reaction Status Date / Time No Known Allergies Allergy Verified 09/02/18 20:02 All Systems: The remainder of the systems were reviewed and are negative Physical Examination Vital Signs: Vital Signs, Last 4 Hours Temp Pulse Resp BP Pulse Ox 09/03/18 09:00 79 16 110/65 96 09/03/18 08:16 96.4 F L 09/03/18 08:04 19 96/58 97 09/03/18 08:00 80 09/03/18 07:00 78 19 106/60 96 09/03/18 06:06 27 121/66 94 09/03/18 06:00 73 16 102/61 96 Ventilator Settings Ventilator Settings: Ventilator Settings, Last 8 Hours Ventilator Tidal Volume 460 Setting Ventilator Tidal Volume 460 Setting Ventilator Tidal Volume 460 Setting Ventilator Tidal Volume 460 Setting Ventilator Tidal Volume 460 Setting Ventilator Tidal Volume 460 Setting Ventilator Tidal Volume 460 Setting Ventilator Tidal Volume 460 Setting Ventilator Tidal Volume 460 Setting Ventilator Tidal Volume 460 Setting Ventilator Tidal Volume 460 Setting Ventilator Tidal Volume 460 Setting Ventilator Respiratory Rate 16 Setting Ventilator Respiratory Rate 16 Setting Ventilator Respiratory Rate 16 Setting Ventilator Respiratory Rate 16 Setting Ventilator Respiratory Rate 16 Setting Ventilator Respiratory Rate 16 Setting Ventilator Respiratory Rate 16 Setting Ventilator Respiratory Rate 16 Setting Ventilator Respiratory Rate 16 Setting Ventilator Respiratory Rate 16 Setting Ventilator Respiratory Rate 16 Setting Ventilator Respiratory Rate 16 Setting Actual Respiratory Rate 16 Actual Respiratory Rate 19 Actual Respiratory Rate 17 Actual Respiratory Rate 19 Positive End Expiratory 5 Pressure Positive End Expiratory 5 Pressure Positive End Expiratory 5 Pressure Positive End Expiratory 5 Pressure Positive End Expiratory 5 Pressure Positive End Expiratory 5 Pressure Positive End Expiratory 5 Pressure Positive End Expiratory 5 Pressure Positive End Expiratory 5 Pressure Positive End Expiratory 5 Pressure Positive End Expiratory 5 Pressure Positive End Expiratory 5 Pressure Peak Inspiratory Airway 17 Pressure Peak Inspiratory Airway 9.0 Pressure Peak Inspiratory Airway 20 Pressure Peak Inspiratory Airway 19 Pressure Results - Laboratory Findings CBC and BMP: 09/03/18 03:55 09/03/18 09:50 ABG ABG pH 7.26 pH Units (7.32-7.45) L 09/03/18 04:50 ABG pCO2 37 mmHg (35-45) 09/03/18 04:50 ABG pO2 120 mmHg (85-104) H 09/03/18 04:50 ABG O2 Saturation 98 % (95-98) 09/03/18 04:50 PT/INR, D-dimer PT 12.2 Seconds (9.4-12.1) H 09/03/18 03:55 Abnormal lab findings: Abnormal lab results WBC 16.2 K/mcL (4.3-11.1) H D 09/03/18 03:55 MCH 33.6 pg (28.0-33.3) H 09/03/18 03:55 Neutrophils # 13.5 K/mcL (1.6-8.9) H 09/03/18 03:55 PT 12.2 Seconds (9.4-12.1) H 09/03/18 03:55 Heparin Anti-Xa, Unfract 0.72 IU/mL (0.30-0.70) H 09/03/18 03:55 ABG pH 7.26 pH Units (7.32-7.45) L 09/03/18 04:50 ABG pO2 120 mmHg (85-104) H 09/03/18 04:50 ABG HCO3 17 mEq/L (21-27) L 09/03/18 04:50 ABG Total CO2 18 mEq/L (20-26) L 09/03/18 04:50 ABG Base Excess -10 mEq/L (-2 to 3) L 09/03/18 04:50 Sodium 129 mEq/L (136-145) L 09/03/18 03:55 Potassium 5.9 mEq/L (3.5-5.1) H D 09/03/18 03:55 Carbon Dioxide 16 mEq/L (23-29) L 09/03/18 03:55 Glucose 218 mg/dL (70-105) H 09/03/18 03:55 POC Glucose 203 mg/dL (70-99) H 09/03/18 05:09 Calculated Osmolality 278 (280-300) L 09/03/18 03:55 Calcium 6.7 mg/dL (8.6-10.3) L 09/03/18 03:55 Magnesium 1.5 mg/dL (1.6-2.6) L 09/03/18 03:55 Total Bilirubin 1.2 mg/dL (0.3-1.0) H 09/03/18 03:55 AST 77 Units/L (13-39) H 09/03/18 03:55 ALT 53 Units/L (7-52) H 09/03/18 03:55 Troponin I 3.66 ng/mL (< 0.04) H* 09/03/18 03:55 B-Natriuretic Peptide 2227 pg/mL (Less than 100) H 09/02/18 14:42 Serum Total Protein 5.4 g/dL (6.4-8.9) L 09/03/18 03:55 Albumin 3.1 g/dL (3.5-5.7) L 09/03/18 03:55 Globulin 2.3 g/dL (2.4-3.5) L 09/03/18 03:55 Ethyl Alcohol 62 mg/dL (Less than 10) H 09/02/18 14:42 - Clinical Findings Intake & Output: Intake & Output 09/02/18 09/03/18 09/03/18 23:59 07:59 15:59 Intake Total 3368 / 3368 1678 / 1678 322 / 322 Output Total 900 / 900 75 / 75 Balance 3368 / 3368 778 / 778 247 / 247 Weight 68.9 kg Consult Discharge Plan - Plan Referrals: NONE,PCP [Primary Care Provider] - - Attending Attestation I examined this patient and my medical decision-making was reviewed with the Resident Physician. I agree with the documented findings, disposition and treatment plan as described except to the extent set forth below. We independently had [id number] contact with the patient I spent 40min of Critical Care time with this patient. It involved decision making of high complexity to assess, manipulate, and support vital organ system failure and/or to prevent further life threatening deterioration of the patient's condition. The time involved in the performance of separately reportable procedures was not counted toward critical care time. Patient seen and examined at bedside Labs, radiology, chart personally reviewed. Management was reviewed during multidisciplinary critical care rounds. 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 Otherwise moving all extremities to and following commands through periods of agitation. Pulm: Acute hypoxic respiratory failure secondary to decompensated heart failure on the ventilator with acceptable gas exchange today not a candidate for SBT because of ongoing myocardial ischemia Cards: Acute decompensated heart failure with reduced ejection fraction along with non-STEMI. Cardiology following continue vasopressor support for goal map around [id number] patient cardiology recommendations will continue ACS protocol plan to transfer patient to tertiary referral center because of complex nature of heart disease and evaluation of high risk PCI versus CABG in the context of decompensated heart failure GI: GI prophylaxis given Nutrition: Nothing by mouth for now Renal: Low urine output secondary to heart failure and creatinine remained stable mild hyperkalemia which we are following up on and will treat hypo magnesemia which we will also replace UOP Monitored, Cont to Trend sCr and monitor Electrolytes. ID: Mild leukocytosis from the previous day likely stress response No clear evidence of infectious process will send patient for cultures holding antibiotics at this time this x-ray without evidence of pneumonia Heme/Onc: Patient remains on heparin infusion continue to trend hemoglobin and platelets Endo: Glucose Monitored Integ/MSK: Skin Care per routine ICU Nursing Protocol to prevent ulcers. Lines: All lines examined without evidence of infection : Dispo: [facility] for [facility] care CODE: Full <Emelia Mak M - Last Filed: 09/03/18 12:14> Date of Encounter: 09/03/18 Time of Encounter: 08:21 Assessment and Plan (1) Cardiogenic shock Current Visit: Yes Status: Acute Cardiogenic shock due to possible ACS with elevated troponin and EKG changes of ST elevation; troponin trended 1.14, 3.71, and 3.66 and lactic acid 3.1 to 1.7 with aggressive hydration - titrate norepi - sedated with predecex and fentyal - continue to trend trop Echo 09-03-18 showed EF of 10% Cardiology consulted and consider subacute EtOH cardiomyopathy vs severe triple vessel disease. The advise transfer to advanced heart failure center for urgent intervention of treatment for volume overload with severe LV dysfunction. May need possible LHC once stable (2) Acute respiratory failure Current Visit: Yes Status: Acute Acute hypoxia on admit currently intubated and sedated - see above Qualifiers: Respiratory failure complication: hypercapnia Qualified Code(s): J96.02 - Acute respiratory failure with hypercapnia (3) Pulmonary edema Current Visit: Yes Status: Acute Flash pulmonary edema likely etiology cardiogenic - see above Qualifiers: Chronicity: acute Qualified Code(s): J81.0 - Acute pulmonary edema (4) Pancreatic lesion Current Visit: Yes Status: Acute Acute pancreatic unlikely; Pancreatic lesion possible mass seen on CT with normal lipase. - need out patient follow up once stablized (5) Alcohol withdrawal delirium, acute, hyperactive Current Visit: Yes Status: Acute Positive blood EtOH on admit with history of chronic alcohol abuse - CIWAS protocol with ativan - sedated with precedex - Urine UDS ordered (6) Hyperkalemia Current Visit: Yes Status: Acute K 5.9 resolved to 4.3 on recheck of lab with magnesium of 1.8 (7) DVT prophylaxis Current Visit: Yes Status: Acute heparin drip History of Present Illness Consult date: 09/03/18 Requesting physician: Abhilash Hurt Reason for consult: dyspnea, hypoxemia Chief complaint: shortness of breath History of present illness: 63 M with little known medical history was intubated and transferred to ICU overnight after admitted for ACS with acute heart failure. He came to ED complaining for shortness of breath with tachycardia 128 and oxygen stat 98% but severe work of breathing necessitated intubation by ED. Chest X-ray showed pulmonary edema and he was started on nitroglycerin drip and IV lasix. ABG severe acidosis with pH 7.17 improved after intubation to 7.25. Elevated troponins 1.14 and BNP 2227 with Cardiology was consulted and advised he be placed on heparin drip. Initially hypertensive when he was sedated with profolol and continued nitroglycerin but became hypotension and did not improve with 2L NS bolus thus started on levophed. CTA chest/ ab/pelvis showed pulmonary edema with small effusions, infrarenal abdominal aortic aneurysm and multiple moderate arterial stenosis including inferior mesenteric and bilateral iliac artery stenosis. Per patient's records and he started complain of shortness of breath yesterday afternoon. He has been complaining of leg and neck pain. PMHX included untreated HTN but has pattern of avoiding medical treatment . Significant smoking history for 50 years. Past Med Surg Social Fam HX - Past Medical History Medical history: hypertension Psychiatric history: no psych history - Social History Smoking Status: Current every day smoker Smokeless Tobacco Status: No Alcohol use: heavy, recent Drug use: unknown All Systems: The remainder of the systems were reviewed and are negative Physical Examination Vital Signs: Vital Signs, Last 4 Hours Temp Pulse Resp BP Pulse Ox 09/03/18 08:16 96.4 F L 12/08/18 08:04 19 96/58 97 12/08/18 07:00 78 19 106/60 96 09/03/18 06:06 27 121/66 94 09/03/18 06:00 73 16 102/61 96 09/03/18 05:00 78 19 112/65 94 09/03/18 04:40 97.5 F L General appearance: no acute distress, comatose Eyes: nonicteric ENT: oropharynx dry Effort: mildly labored Auscultation: bilateral: rales Cardiovascular: regular rate and rhythm Gastrointestinal: normoactive bowel sounds, soft, non-tender Integumentary: normal Extremities: no cyanosis, no edema Musculoskeletal: no deformities unable to assess due to mental status Ventilator Settings Ventilator Settings: Ventilator Settings, Last 8 Hours Ventilator Tidal Volume 460 Setting Ventilator Tidal Volume 460 Setting Ventilator Tidal Volume 460 Setting Ventilator Tidal Volume 460 Setting Ventilator Tidal Volume 460 Setting Ventilator Tidal Volume 460 Setting Ventilator Tidal Volume 460 Setting Ventilator Tidal Volume 460 Setting Ventilator Tidal Volume 460 Setting Ventilator Tidal Volume 460 Setting Ventilator Tidal Volume 460 Setting Ventilator Tidal Volume 460 Setting Ventilator Respiratory Rate 16 Setting Ventilator Respiratory Rate 16 Setting Ventilator Respiratory Rate 16 Setting Ventilator Respiratory Rate 16 Setting Ventilator Respiratory Rate 16 Setting Ventilator Respiratory Rate 16 Setting Ventilator Respiratory Rate 16 Setting Ventilator Respiratory Rate 16 Setting Ventilator Respiratory Rate 16 Setting Ventilator Respiratory Rate 16 Setting Ventilator Respiratory Rate 16 Setting Ventilator Respiratory Rate 16 Setting Actual Respiratory Rate 16 Actual Respiratory Rate 19 Actual Respiratory Rate 17 Actual Respiratory Rate 19 Positive End Expiratory 5 Pressure Positive End Expiratory 5 Pressure Positive End Expiratory 5 Pressure Positive End Expiratory 5 Pressure Positive End Expiratory 5 Pressure Positive End Expiratory 5 Pressure Positive End Expiratory 5 Pressure Positive End Expiratory 5 Pressure Positive End Expiratory 5 Pressure Positive End Expiratory 5 Pressure Positive End Expiratory 5 Pressure Positive End Expiratory 5 Pressure Peak Inspiratory Airway 17 Pressure Peak Inspiratory Airway 9.0 Pressure Peak Inspiratory Airway 20 Pressure Peak Inspiratory Airway 19 Pressure Results - Laboratory Findings CBC and BMP: 09/03/18 03:55 09/03/18 09:50 ABG ABG pH 7.26 pH Units (7.32-7.45) L 09/03/18 04:50 ABG pCO2 37 mmHg (35-45) 09/03/18 04:50 ABG pO2 120 mmHg (85-104) H 09/03/18 04:50 ABG O2 Saturation 98 % (95-98) 09/03/18 04:50 PT/INR, D-dimer PT 12.2 Seconds (9.4-12.1) H 09/03/18 03:55 Abnormal lab findings: Abnormal lab results WBC 16.2 K/mcL (4.3-11.1) H D 09/03/18 03:55 MCH 33.6 pg (28.0-33.3) H 09/03/18 03:55 Neutrophils # 13.5 K/mcL (1.6-8.9) H 09/03/18 03:55 PT 12.2 Seconds (9.4-12.1) H 09/03/18 03:55 Heparin Anti-Xa, Unfract 0.72 IU/mL (0.30-0.70) H 09/03/18 03:55 ABG pH 7.26 pH Units (7.32-7.45) L 09/03/18 04:50 ABG pO2 120 mmHg (85-104) H 09/03/18 04:50 ABG HCO3 17 mEq/L (21-27) L 09/03/18 04:50 ABG Total CO2 18 mEq/L (20-26) L 09/03/18 04:50 ABG Base Excess -10 mEq/L (-2 to 3) L 09/03/18 04:50 Sodium 129 mEq/L (136-145) L 09/03/18 03:55 Potassium 5.9 mEq/L (3.5-5.1) H D 09/03/18 03:55 Carbon Dioxide 16 mEq/L (23-29) L 09/03/18 03:55 Glucose 218 mg/dL (70-105) H 09/03/18 03:55 POC Glucose 203 mg/dL (70-99) H 09/03/18 05:09 Calculated Osmolality 278 (280-300) L 09/03/18 03:55 Calcium 6.7 mg/dL (8.6-10.3) L 09/03/18 03:55 Magnesium 1.5 mg/dL (1.6-2.6) L 09/03/18 03:55 Total Bilirubin 1.2 mg/dL (0.3-1.0) H 09/03/18 03:55 AST 77 Units/L (13-39) H 09/03/18 03:55 ALT 53 Units/L (7-52) H 09/03/18 03:55 Troponin I 3.66 ng/mL (< 0.04) H* 09/03/18 03:55 B-Natriuretic Peptide 2227 pg/mL (Less than 100) H 09/02/18 14:42 Serum Total Protein 5.4 g/dL (6.4-8.9) L 09/03/18 03:55 Albumin 3.1 g/dL (3.5-5.7) L 09/03/18 03:55 Globulin 2.3 g/dL (2.4-3.5) L 09/03/18 03:55 Ethyl Alcohol 62 mg/dL (Less than 10) H 09/02/18 14:42 - Clinical Findings Intake & Output: Intake & Output 09/02/18 09/03/18 09/03/18 23:59 07:59 15:59 Intake Total 3368 / 3368 1678 / 1678 322 / 322 Output Total 900 / 900 75 / 75 Balance 3368 / 3368 778 / 778 247 / 247 Weight 68.9 kg
[2018-09-03] MEDS ORDERED: Norepinephrine 8 MG in D5% in Water 500 ML IVC SCH (08:30)
[2018-09-03] MEDS ORDERED: Pantoprazole 40 MG VIAL IVP SCH (09:00)
--- NOTE | 2018-09-03 09:50 | Discharge Summary ---
<Jonathan George W - Last Filed: 09/03/18 11:46> Orders not resulted at time of discharge: Pending orders 09/02/18 14:25 ECG 12 lead ECG [ECG] Stat 09/02/18 21:02 EKG [ECG 12 lead ECG] [ECG] Stat 09/03/18 04:00 EKG [ECG 12 lead ECG] [ECG] Routine 09/03/18 06:46 Drug Screen, Urine [UCHEM] Routine 09/03/18 07:59 Culture,Sputum with Gram Stain [RM] Routine Legionella Antigen [RM] Routine S. Pneumoniae Antigen [RM] Routine 09/03/18 09:00 ABG [Arterial Blood Gas] Routine 09/03/18 09:20 Culture,Blood [BC] Stat 09/03/18 10:00 Troponin I Stat 09/03/18 10:46 Heparin anti-factor XA UFH [COAG] Stat 09/04/18 04:00 ABG [Arterial Blood Gas] AM 0400 Basic Metabolic Panel AM 0400 Complete Blood Count [HEME] AM 0400 Hepatic Panel AM 0400 Magnesium AM 0400 Phosphorous AM 0400 09/05/18 04:00 ABG [Arterial Blood Gas] AM 0400 Basic Metabolic Panel AM 0400 Complete Blood Count [HEME] AM 0400 Magnesium AM 0400 Phosphorous AM 0400 09/06/18 04:00 ABG [Arterial Blood Gas] AM 0400 Basic Metabolic Panel AM 0400 Complete Blood Count [HEME] AM 0400 Magnesium AM 0400 Phosphorous AM 0400 Date of Encounter: 09/03/18 - Discharge Medications Home Medications: No Known Home Drugs 09/02/18 [History] Allergies/Adverse Reactions: Allergy/AdvReac Type Severity Reaction Status Date / Time No Known Allergies Allergy Verified 09/02/18 20:02 Labs on day of discharge: Labs from last 24 hours 09/03/18 09/03/18 09/03/18 09:50 09:50 05:09 WBC RBC Hgb Hct MCV MCH MCHC RDW Plt Count MPV Immature Gran % Seg Neutrophils % Lymphocytes % Monocytes % Eosinophils % Basophils % Neutrophils # Lymphocytes # Monocytes # Eosinophils # Basophils # PT INR APTT Heparin Anti-Xa, Unfract 0.65 Sample Site ABG pH ABG pCO2 ABG pO2 ABG HCO3 ABG Total CO2 ABG O2 Saturation ABG Base Excess Jameson Test Respiration Rate O2 Delivery Device Blood Gas Modality Inspired O2 Tidal Volume PEEP Sodium 130 L Potassium 4.3 D Chloride 104 Carbon Dioxide 20 L BUN 21 Creatinine 1.19 Est GFR ( Amer) > 60 Est GFR (Non-Af Amer) > 60 BUN/Creatinine Ratio 18 Glucose 171 H POC Glucose 203 H Est Mean Plasma Glucose Hemoglobin A1c Calculated Osmolality 277 L Lactic Acid Calcium 6.4 L Phosphorus Magnesium 1.8 Total Bilirubin AST ALT Alkaline Phosphatase Troponin I B-Natriuretic Peptide Serum Total Protein Albumin Globulin Albumin/Globulin Ratio Triglycerides Cholesterol LDL Cholesterol, Calc VLDL Cholesterol, Calc HDL Cholesterol Cholesterol/HDL Ratio Lipase Ethyl Alcohol 09/03/18 09/03/18 09/03/18 04:50 03:55 03:55 WBC RBC Hgb Hct MCV MCH MCHC RDW Plt Count MPV Immature Gran % Seg Neutrophils % Lymphocytes % Monocytes % Eosinophils % Basophils % Neutrophils # Lymphocytes # Monocytes # Eosinophils # Basophils # PT INR APTT Heparin Anti-Xa, Unfract 0.72 H Sample Site ABG pH 7.26 L ABG pCO2 37 ABG pO2 120 H ABG HCO3 17 L ABG Total CO2 18 L ABG O2 Saturation 98 ABG Base Excess -10 L Jameson Test Respiration Rate 16 O2 Delivery Device Adult Vent Blood Gas Modality ASSIST CONTROL Inspired O2 50.0 Tidal Volume 460 PEEP 5 Sodium Potassium Chloride Carbon Dioxide BUN Creatinine Est GFR ( Amer) Est GFR (Non-Af Amer) BUN/Creatinine Ratio Glucose POC Glucose Est Mean Plasma Glucose 108 Hemoglobin A1c 5.4 Calculated Osmolality Lactic Acid Calcium Phosphorus Magnesium Total Bilirubin AST ALT Alkaline Phosphatase Troponin I B-Natriuretic Peptide Serum Total Protein Albumin Globulin Albumin/Globulin Ratio Triglycerides Cholesterol LDL Cholesterol, Calc VLDL Cholesterol, Calc HDL Cholesterol Cholesterol/HDL Ratio Lipase Ethyl Alcohol 09/03/18 09/03/18 09/03/18 03:55 03:55 03:55 WBC 16.2 H D RBC 4.59 Hgb 15.4 Hct 44.3 MCV 96.5 MCH 33.6 H MCHC 34.8 RDW 12.2 Plt Count 209 MPV 10.3 Immature Gran % 0.5 Seg Neutrophils % 83.5 Lymphocytes % 10.0 Monocytes % 5.8 Eosinophils % 0.0 Basophils % 0.2 Neutrophils # 13.5 H Lymphocytes # 1.6 Monocytes # 0.9 Eosinophils # 0.0 Basophils # 0.0 PT 12.2 H INR 1.1 APTT Heparin Anti-Xa, Unfract Sample Site ABG pH ABG pCO2 ABG pO2 ABG HCO3 ABG Total CO2 ABG O2 Saturation ABG Base Excess Jameson Test Respiration Rate O2 Delivery Device Blood Gas Modality Inspired O2 Tidal Volume PEEP Sodium 129 L Potassium 5.9 H D Chloride 104 Carbon Dioxide 16 L BUN 21 Creatinine 1.06 Est GFR ( Amer) > 60 Est GFR (Non-Af Amer) > 60 BUN/Creatinine Ratio 20 Glucose 218 H POC Glucose Est Mean Plasma Glucose Hemoglobin A1c Calculated Osmolality 278 L Lactic Acid Calcium 6.7 L Phosphorus 4.3 Magnesium 1.5 L Total Bilirubin 1.2 H AST 77 H ALT 53 H Alkaline Phosphatase 47 Troponin I B-Natriuretic Peptide Serum Total Protein 5.4 L Albumin 3.1 L Globulin 2.3 L Albumin/Globulin Ratio 1.3 Triglycerides 76 Cholesterol 98 LDL Cholesterol, Calc 29 VLDL Cholesterol, Calc 15 HDL Cholesterol 54 Cholesterol/HDL Ratio 1.8 Lipase Ethyl Alcohol 09/03/18 09/03/18 09/02/18 03:55 00:18 23:51 WBC RBC Hgb Hct MCV MCH MCHC RDW Plt Count MPV Immature Gran % Seg Neutrophils % Lymphocytes % Monocytes % Eosinophils % Basophils % Neutrophils # Lymphocytes # Monocytes # Eosinophils # Basophils # PT INR APTT Heparin Anti-Xa, Unfract Sample Site ABG pH ABG pCO2 ABG pO2 ABG HCO3 ABG Total CO2 ABG O2 Saturation ABG Base Excess Jameson Test Respiration Rate O2 Delivery Device Blood Gas Modality Inspired O2 Tidal Volume PEEP Sodium Potassium Chloride Carbon Dioxide BUN Creatinine Est GFR ( Amer) Est GFR (Non-Af Amer) BUN/Creatinine Ratio Glucose POC Glucose 117 H Est Mean Plasma Glucose Hemoglobin A1c Calculated Osmolality Lactic Acid 1.7 Calcium Phosphorus Magnesium Total Bilirubin AST ALT Alkaline Phosphatase Troponin I 3.66 H* B-Natriuretic Peptide Serum Total Protein Albumin Globulin Albumin/Globulin Ratio Triglycerides Cholesterol LDL Cholesterol, Calc VLDL Cholesterol, Calc HDL Cholesterol Cholesterol/HDL Ratio Lipase Ethyl Alcohol 09/02/18 09/02/18 09/02/18 21:28 21:28 21:28 WBC RBC Hgb Hct MCV MCH MCHC RDW Plt Count MPV Immature Gran % Seg Neutrophils % Lymphocytes % Monocytes % Eosinophils % Basophils % Neutrophils # Lymphocytes # Monocytes # Eosinophils # Basophils # PT 12.3 H INR 1.1 APTT Heparin Anti-Xa, Unfract 0.00 L Sample Site ABG pH ABG pCO2 ABG pO2 ABG HCO3 ABG Total CO2 ABG O2 Saturation ABG Base Excess Jameson Test Respiration Rate O2 Delivery Device Blood Gas Modality Inspired O2 Tidal Volume PEEP Sodium Potassium Chloride Carbon Dioxide BUN Creatinine Est GFR ( Amer) Est GFR (Non-Af Amer) BUN/Creatinine Ratio Glucose POC Glucose Est Mean Plasma Glucose Hemoglobin A1c Calculated Osmolality Lactic Acid 3.1 H Calcium Phosphorus 5.1 H Magnesium 1.2 L Total Bilirubin AST ALT Alkaline Phosphatase Troponin I 3.71 H* B-Natriuretic Peptide Serum Total Protein Albumin Globulin Albumin/Globulin Ratio Triglycerides Cholesterol LDL Cholesterol, Calc VLDL Cholesterol, Calc HDL Cholesterol Cholesterol/HDL Ratio Lipase Ethyl Alcohol 09/02/18 09/02/18 09/02/18 21:28 21:06 20:21 WBC 10.5 RBC 4.23 Hgb 14.3 D Hct 41.5 MCV 98.1 MCH 33.8 H MCHC 34.5 RDW 12.1 Plt Count 166 MPV 10.2 Immature Gran % 0.7 Seg Neutrophils % 85.3 Lymphocytes % 8.4 Monocytes % 5.1 Eosinophils % 0.3 Basophils % 0.2 Neutrophils # 9.0 H Lymphocytes # 0.9 Monocytes # 0.5 Eosinophils # 0.0 Basophils # 0.0 PT INR APTT Heparin Anti-Xa, Unfract Sample Site R Radial ABG pH 7.25 L ABG pCO2 47 H ABG pO2 113 H ABG HCO3 21 ABG Total CO2 22 ABG O2 Saturation 98 ABG Base Excess -7 L Jameson Test N/A Respiration Rate 16 O2 Delivery Device Adult Vent Blood Gas Modality ASSIST CONTROL Inspired O2 50.0 Tidal Volume 460 PEEP 5 Sodium Potassium Chloride Carbon Dioxide BUN Creatinine Est GFR ( Amer) Est GFR (Non-Af Amer) BUN/Creatinine Ratio Glucose POC Glucose 125 H Est Mean Plasma Glucose Hemoglobin A1c Calculated Osmolality Lactic Acid Calcium Phosphorus Magnesium Total Bilirubin AST ALT Alkaline Phosphatase Troponin I B-Natriuretic Peptide Serum Total Protein Albumin Globulin Albumin/Globulin Ratio Triglycerides Cholesterol LDL Cholesterol, Calc VLDL Cholesterol, Calc HDL Cholesterol Cholesterol/HDL Ratio Lipase Ethyl Alcohol 09/02/18 09/02/18 09/02/18 14:44 14:42 14:42 WBC RBC Hgb Hct MCV MCH MCHC RDW Plt Count MPV Immature Gran % Seg Neutrophils % Lymphocytes % Monocytes % Eosinophils % Basophils % Neutrophils # Lymphocytes # Monocytes # Eosinophils # Basophils # PT INR APTT Heparin Anti-Xa, Unfract Sample Site ABG pH 7.17 L* ABG pCO2 55 H ABG pO2 314 H ABG HCO3 20 L ABG Total CO2 21 ABG O2 Saturation 100 H ABG Base Excess -10 L Jameson Test Respiration Rate O2 Delivery Device BiPAP Blood Gas Modality Inspired O2 100.0 Tidal Volume PEEP Sodium 130 L Potassium 3.9 Chloride 93 L Carbon Dioxide 20 L BUN 17 Creatinine 1.10 Est GFR ( Amer) > 60 Est GFR (Non-Af Amer) > 60 BUN/Creatinine Ratio 15 Glucose 167 H POC Glucose Est Mean Plasma Glucose Hemoglobin A1c Calculated Osmolality 275 L Lactic Acid Calcium 9.6 Phosphorus Magnesium Total Bilirubin AST ALT Alkaline Phosphatase Troponin I 1.14 H* B-Natriuretic Peptide 2227 H Serum Total Protein Albumin Globulin Albumin/Globulin Ratio Triglycerides Cholesterol LDL Cholesterol, Calc VLDL Cholesterol, Calc HDL Cholesterol Cholesterol/HDL Ratio Lipase 82 Ethyl Alcohol 62 H 09/02/18 09/02/18 14:42 14:42 WBC 15.4 H RBC 5.64 H Hgb 19.0 H Hct 55.4 H MCV 98.2 MCH 33.7 H MCHC 34.3 RDW 12.1 Plt Count 246 MPV 10.9 Immature Gran % 1.3 Seg Neutrophils % 55.3 Lymphocytes % 35.9 Monocytes % 6.4 Eosinophils % 0.4 Basophils % 0.7 Neutrophils # 8.5 Lymphocytes # 5.5 H Monocytes # 1.0 Eosinophils # 0.1 Basophils # 0.1 PT 10.7 INR 1.0 APTT 31.1 Heparin Anti-Xa, Unfract Sample Site ABG pH ABG pCO2 ABG pO2 ABG HCO3 ABG Total CO2 ABG O2 Saturation ABG Base Excess Jameson Test Respiration Rate O2 Delivery Device Blood Gas Modality Inspired O2 Tidal Volume PEEP Sodium Potassium Chloride Carbon Dioxide BUN Creatinine Est GFR ( Amer) Est GFR (Non-Af Amer) BUN/Creatinine Ratio Glucose POC Glucose Est Mean Plasma Glucose Hemoglobin A1c Calculated Osmolality Lactic Acid Calcium Phosphorus Magnesium Total Bilirubin AST ALT Alkaline Phosphatase Troponin I B-Natriuretic Peptide Serum Total Protein Albumin Globulin Albumin/Globulin Ratio Triglycerides Cholesterol LDL Cholesterol, Calc VLDL Cholesterol, Calc HDL Cholesterol Cholesterol/HDL Ratio Lipase Ethyl Alcohol Preliminary micro results at discharge 09/03/18 09:20 Blood Culture - Preliminary Peripheral Venipuncture Culture is incubating and being continuously monitored for growth. Final report to follow. 09/03/18 09:20 Blood Culture - Preliminary Peripheral Venipuncture Culture is incubating and being continuously monitored for growth. Final report to follow. - Impressions ITS Impressions Chest X-Ray 09/02/18 00:00 IMPRESSION: Endotracheal tube tip is approximately 1.6 cm above the ines. Otherwise stable chest from earlier today. D/ / Aretha Adams MD / Aretha Adams MD Interpreting Provider: Aretha Adams MD Chest X-Ray 09/02/18 14:25 IMPRESSION: Bilateral airspace disease, most likely secondary to pulmonary edema and/or pneumonia. Radiographic follow-up to document resolution is recommended. D/ / Francisco J Palacio MD / Francisco J Palacio MD Interpreting Provider: Francisco J Palacio MD Abdomen/Pelvis CTA 09/02/18 15:39 IMPRESSION: 1. Pulmonary edema and small pleural effusions. 2. Lesion in the pancreatic tail. Differential includes acute pancreatitis versus pancreatic mass. 3. 3.4 cm saccular aneurysm of the infrarenal abdominal aorta. 4. 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 5. Multiple other moderate arterial stenoses throughout the chest, abdomen and pelvis as above. 6. 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 7. No acute aortic abnormality. 8. No large pulmonary embolus. RECOMMENDATIONS: Consider nonemergent pancreatic mass protocol MRI with contrast. Managing Abdominal Aortic Aneurysms Recommend repeat imaging every 3 years. Reference: J Vasc Surg. 2009 Jun;50(4 Suppl):S2-49 D/ /02/2018 18:30:25 Eros Baez MD / ramana Interpreting Provider: Eros Baez MD Chest CTA 09/02/18 15:39 IMPRESSION: 1. Pulmonary edema and small pleural effusions. 2. Lesion in the pancreatic tail. Differential includes acute pancreatitis versus pancreatic mass. 3. 3.4 cm saccular aneurysm of the infrarenal abdominal aorta. 4. 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 5. Multiple other moderate arterial stenoses throughout the chest, abdomen and pelvis as above. 6. 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 7. No acute aortic abnormality. 8. No large pulmonary embolus. RECOMMENDATIONS: Consider nonemergent pancreatic mass protocol MRI with contrast. Managing Abdominal Aortic Aneurysms Recommend repeat imaging every 3 years. Reference: J Vasc Surg. 2008;50(4 Suppl):S2-49 D/ /02/2018 18:30:25 Eros Baez MD / ramana Interpreting Provider: Eros Baez MD Echocardiogram 09/02/18 22:15 Impressions: LVEF 10-15%. Normal LV chamber size and wall thickness. Severe global left ventricular systolic dysfunction. Mild left ventricular diastolic dysfunction. There is no LV thrombus. Normal RV size, mildly reduced systolic function. Unable to estimate RVSP due to lack of adequate TR jet. No significant valvular dysfunction. Cardiology rounding team aware of findings. Discussed with ICU. Left Ventricular Wall Motion: Rest Echo Findings The apex, apical inferior, mid inferior, basal inferior, apical anterior, mid anterior, basal anterior, apical septal, mid inferior septal, basal inferior septal, apical lateral, mid anterior lateral, basal anterior lateral, mid anterior septal, mid inferior lateral, basal anterior septal and basal inferior lateral rangel were hypokinetic. Findings: Study Quality * Technically sub-optimal due to clinical status. ECG Findings * Normal sinus rhythm. Left Ventricle * LVEF 10-15%. * Normal LV chamber size and wall thickness. * Severe global left ventricular systolic dysfunction. * Mild left ventricular diastolic dysfunction. * There is no LV thrombus. Right Ventricle * Normal RV size, mildly reduced systolic function. Left Atrium * Mildly dilated left atrium. Right Atrium * Normal right atrial size. Aortic Valve * Aortic valve not well visualized. * No aortic regurgitation. * No aortic stenosis. Mitral Valve * Mildly thickened mitral valve leaflets. * Trace mitral regurgitation. * No mitral stenosis. Tricuspid Valve * Normal tricuspid valve structure and function. * No tricuspid regurgitation. * Unable to estimate RVSP due to lack of TR jet. Pulmonic Valve * Pulmonic valve is not well visualized. * No pulmonic regurgitation. Aorta * Normally sized aortic root. Pericardium * The pericardium appears normal. IVC * The IVC is dilated. Pulmonary Artery * Pulmonary artery not well visualized. Chest X-Ray 09/03/18 08:22 IMPRESSION: Interval increase in interstitial opacities and small effusions, which may represent developing edema. Endotracheal tube terminates in appropriate position above the ines. The enteric tube is coiled in the body of the stomach. D/ / Celso Delgado / Celso Delgado Interpreting Provider: Celso Delgado Date of admission: 09/02/18 19:36 Primary care physician: PCP NONE Consults: 09/02/18 20:38 Consult to Critical Care [CONS] Routine Consulting Provider: [facility] Reason for Consult: vent managment Call Completed: Yes 09/03/18 01:14 Consult to Cardiology [CONS] Routine Comment: Consulting Provider: Cardiology [place] Reason for Consult: Elevated troponin/Pulmonary edema Call Completed: Yes - Patient Status Disposition: Transfer Critical Access Hosp Condition: Serious - Discharge Instructions Follow Up With: NONE,PCP [Primary Care Provider] - - Hospital Course Hospital course: Mr. Kc is a 63 year old male - Time Spent with Patient Total time spent providing and/or coordinating discharge services: Physical Examination Vital Signs: Vital Signs, Last 4 Hours Temp Pulse Resp BP Pulse Ox 09/03/18 11:40 16 104/84 98 09/03/18 10:00 80 16 101/63 96 09/03/18 09:51 16 103/62 97 09/03/18 09:00 79 16 110/65 96 09/03/18 08:16 96.4 F L 09/03/18 08:04 19 96/58 97 09/03/18 08:00 80 - Attending Attestation I examined this patient and my medical decision-making was reviewed with the Resident Physician. I agree with the documented findings, disposition and treatment plan as described except to the extent set forth below. We independently had [id number] contact with the patient Discussed case with cardiology patient presented with decompensated heart failure and NSTEMI Complex nature of her cardiovascular disease requires tertiary center referral Patient stable at time of discharge from ICU on vasopressor and vent <Emelia Mak - Last Filed: 09/03/18 12:13> Orders not resulted at time of discharge: Pending orders 09/02/18 14:25 ECG 12 lead ECG [ECG] Stat 09/02/18 21:02 EKG [ECG 12 lead ECG] [ECG] Stat 09/03/18 04:00 EKG [ECG 12 lead ECG] [ECG] Routine 09/03/18 06:46 Drug Screen, Urine [UCHEM] Routine 09/03/18 07:59 Culture,Sputum with Gram Stain [RM] Routine Legionella Antigen [RM] Routine S. Pneumoniae Antigen [RM] Routine 09/03/18 09:00 ABG [Arterial Blood Gas] Routine 09/03/18 09:20 Culture,Blood [BC] Stat 09/03/18 09:44 Basic Metabolic Panel Stat 09/03/18 09:45 Magnesium Stat 09/03/18 10:00 Troponin I Stat 09/03/18 10:30 Heparin anti-factor XA UFH [COAG] Timed 09/04/18 04:00 ABG [Arterial Blood Gas] AM 0400 Basic Metabolic Panel AM 0400 Complete Blood Count [HEME] AM 0400 Hepatic Panel AM 0400 Magnesium AM 0400 Phosphorous AM 0400 09/05/18 04:00 ABG [Arterial Blood Gas] AM 0400 Basic Metabolic Panel AM 0400 Complete Blood Count [HEME] AM 0400 Magnesium AM 0400 Phosphorous AM 0400 09/06/18 04:00 ABG [Arterial Blood Gas] AM 0400 Basic Metabolic Panel AM 0400 Complete Blood Count [HEME] AM 0400 Magnesium AM 0400 Phosphorous AM 0400 Date of Encounter: 09/03/18 Time of Encounter: 10:39 - Discharge Diagnosis (1) Cardiogenic shock Priority: Primary Status: Acute (2) Acute respiratory failure Priority: Secondary Status: Acute Qualifiers: Respiratory failure complication: hypercapnia Qualified Code(s): J96.02 - Acute respiratory failure with hypercapnia (3) Elevated troponin Priority: Secondary Status: Acute (4) Hypertensive crisis Priority: Secondary Status: Acute (5) Pulmonary edema Priority: Secondary Status: Acute Qualifiers: Chronicity: acute Qualified Code(s): J81.0 - Acute pulmonary edema (6) Pancreatic lesion Priority: Secondary Status: Acute (7) Alcohol withdrawal delirium, acute, hyperactive Priority: Secondary Status: Acute (8) Aortic aneurysm Priority: Secondary Status: Acute Qualifiers: Aortic location: abdominal aorta Presence of rupture: without rupture Qualified Code(s): I71.4 - Abdominal aortic aneurysm, without rupture Labs on day of discharge: Labs from last 24 hours 09/03/18 09/03/18 09/03/18 05:09 04:50 03:55 WBC RBC Hgb Hct MCV MCH MCHC RDW Plt Count MPV Immature Gran % Seg Neutrophils % Lymphocytes % Monocytes % Eosinophils % Basophils % Neutrophils # Lymphocytes # Monocytes # Eosinophils # Basophils # PT INR APTT Heparin Anti-Xa, Unfract 0.72 H Sample Site ABG pH 7.26 L ABG pCO2 37 ABG pO2 120 H ABG HCO3 17 L ABG Total CO2 18 L ABG O2 Saturation 98 ABG Base Excess -10 L Jameson Test Respiration Rate 16 O2 Delivery Device Adult Vent Blood Gas Modality ASSIST CONTROL Inspired O2 50.0 Tidal Volume 460 PEEP 5 Sodium Potassium Chloride Carbon Dioxide BUN Creatinine Est GFR ( Amer) Est GFR (Non-Af Amer) BUN/Creatinine Ratio Glucose POC Glucose 203 H Est Mean Plasma Glucose Hemoglobin A1c Calculated Osmolality Lactic Acid Calcium Phosphorus Magnesium Total Bilirubin AST ALT Alkaline Phosphatase Troponin I B-Natriuretic Peptide Serum Total Protein Albumin Globulin Albumin/Globulin Ratio Triglycerides Cholesterol LDL Cholesterol, Calc VLDL Cholesterol, Calc HDL Cholesterol Cholesterol/HDL Ratio Lipase Ethyl Alcohol 09/03/18 09/03/18 09/03/18 03:55 03:55 03:55 WBC RBC Hgb Hct MCV MCH MCHC RDW Plt Count MPV Immature Gran % Seg Neutrophils % Lymphocytes % Monocytes % Eosinophils % Basophils % Neutrophils # Lymphocytes # Monocytes # Eosinophils # Basophils # PT 12.2 H INR 1.1 APTT Heparin Anti-Xa, Unfract Sample Site ABG pH ABG pCO2 ABG pO2 ABG HCO3 ABG Total CO2 ABG O2 Saturation ABG Base Excess Jameson Test Respiration Rate O2 Delivery Device Blood Gas Modality Inspired O2 Tidal Volume PEEP Sodium 129 L Potassium 5.9 H D Chloride 104 Carbon Dioxide 16 L BUN 21 Creatinine 1.06 Est GFR ( Amer) > 60 Est GFR (Non-Af Amer) > 60 BUN/Creatinine Ratio 20 Glucose 218 H POC Glucose Est Mean Plasma Glucose 108 Hemoglobin A1c 5.4 Calculated Osmolality 278 L Lactic Acid Calcium 6.7 L Phosphorus 4.3 Magnesium 1.5 L Total Bilirubin 1.2 H AST 77 H ALT 53 H Alkaline Phosphatase 47 Troponin I B-Natriuretic Peptide Serum Total Protein 5.4 L Albumin 3.1 L Globulin 2.3 L Albumin/Globulin Ratio 1.3 Triglycerides 76 Cholesterol 98 LDL Cholesterol, Calc 29 VLDL Cholesterol, Calc 15 HDL Cholesterol 54 Cholesterol/HDL Ratio 1.8 Lipase Ethyl Alcohol 09/03/18 09/03/18 09/03/18 03:55 03:55 00:18 WBC 16.2 H D RBC 4.59 Hgb 15.4 Hct 44.3 MCV 96.5 MCH 33.6 H MCHC 34.8 RDW 12.2 Plt Count 209 MPV 10.3 Immature Gran % 0.5 Seg Neutrophils % 83.5 Lymphocytes % 10.0 Monocytes % 5.8 Eosinophils % 0.0 Basophils % 0.2 Neutrophils # 13.5 H Lymphocytes # 1.6 Monocytes # 0.9 Eosinophils # 0.0 Basophils # 0.0 PT INR APTT Heparin Anti-Xa, Unfract Sample Site ABG pH ABG pCO2 ABG pO2 ABG HCO3 ABG Total CO2 ABG O2 Saturation ABG Base Excess Jameson Test Respiration Rate O2 Delivery Device Blood Gas Modality Inspired O2 Tidal Volume PEEP Sodium Potassium Chloride Carbon Dioxide BUN Creatinine Est GFR ( Amer) Est GFR (Non-Af Amer) BUN/Creatinine Ratio Glucose POC Glucose Est Mean Plasma Glucose Hemoglobin A1c Calculated Osmolality Lactic Acid 1.7 Calcium Phosphorus Magnesium Total Bilirubin AST ALT Alkaline Phosphatase Troponin I 3.66 H* B-Natriuretic Peptide Serum Total Protein Albumin Globulin Albumin/Globulin Ratio Triglycerides Cholesterol LDL Cholesterol, Calc VLDL Cholesterol, Calc HDL Cholesterol Cholesterol/HDL Ratio Lipase Ethyl Alcohol 09/02/18 09/02/18 09/02/18 23:51 21:28 21:28 WBC RBC Hgb Hct MCV MCH MCHC RDW Plt Count MPV Immature Gran % Seg Neutrophils % Lymphocytes % Monocytes % Eosinophils % Basophils % Neutrophils # Lymphocytes # Monocytes # Eosinophils # Basophils # PT 12.3 H INR 1.1 APTT Heparin Anti-Xa, Unfract 0.00 L Sample Site ABG pH ABG pCO2 ABG pO2 ABG HCO3 ABG Total CO2 ABG O2 Saturation ABG Base Excess Jameson Test Respiration Rate O2 Delivery Device Blood Gas Modality Inspired O2 Tidal Volume PEEP Sodium Potassium Chloride Carbon Dioxide BUN Creatinine Est GFR ( Amer) Est GFR (Non-Af Amer) BUN/Creatinine Ratio Glucose POC Glucose 117 H Est Mean Plasma Glucose Hemoglobin A1c Calculated Osmolality Lactic Acid 3.1 H Calcium Phosphorus Magnesium Total Bilirubin AST ALT Alkaline Phosphatase Troponin I B-Natriuretic Peptide Serum Total Protein Albumin Globulin Albumin/Globulin Ratio Triglycerides Cholesterol LDL Cholesterol, Calc VLDL Cholesterol, Calc HDL Cholesterol Cholesterol/HDL Ratio Lipase Ethyl Alcohol 09/02/18 09/02/18 09/02/18 21:28 21:28 21:06 WBC 10.5 RBC 4.23 Hgb 14.3 D Hct 41.5 MCV 98.1 MCH 33.8 H MCHC 34.5 RDW 12.1 Plt Count 166 MPV 10.2 Immature Gran % 0.7 Seg Neutrophils % 85.3 Lymphocytes % 8.4 Monocytes % 5.1 Eosinophils % 0.3 Basophils % 0.2 Neutrophils # 9.0 H Lymphocytes # 0.9 Monocytes # 0.5 Eosinophils # 0.0 Basophils # 0.0 PT INR APTT Heparin Anti-Xa, Unfract Sample Site R Radial ABG pH 7.25 L ABG pCO2 47 H ABG pO2 113 H ABG HCO3 21 ABG Total CO2 22 ABG O2 Saturation 98 ABG Base Excess -7 L Jameson Test N/A Respiration Rate 16 O2 Delivery Device Adult Vent Blood Gas Modality ASSIST CONTROL Inspired O2 50.0 Tidal Volume 460 PEEP 5 Sodium Potassium Chloride Carbon Dioxide BUN Creatinine Est GFR ( Amer) Est GFR (Non-Af Amer) BUN/Creatinine Ratio Glucose POC Glucose Est Mean Plasma Glucose Hemoglobin A1c Calculated Osmolality Lactic Acid Calcium Phosphorus 5.1 H Magnesium 1.2 L Total Bilirubin AST ALT Alkaline Phosphatase Troponin I 3.71 H* B-Natriuretic Peptide Serum Total Protein Albumin Globulin Albumin/Globulin Ratio Triglycerides Cholesterol LDL Cholesterol, Calc VLDL Cholesterol, Calc HDL Cholesterol Cholesterol/HDL Ratio Lipase Ethyl Alcohol 09/02/18 09/02/18 09/02/18 20:21 14:44 14:42 WBC RBC Hgb Hct MCV MCH MCHC RDW Plt Count MPV Immature Gran % Seg Neutrophils % Lymphocytes % Monocytes % Eosinophils % Basophils % Neutrophils # Lymphocytes # Monocytes # Eosinophils # Basophils # PT INR APTT Heparin Anti-Xa, Unfract Sample Site ABG pH 7.17 L* ABG pCO2 55 H ABG pO2 314 H ABG HCO3 20 L ABG Total CO2 21 ABG O2 Saturation 100 H ABG Base Excess -10 L [place] Test Respiration Rate O2 Delivery Device BiPAP Blood Gas Modality Inspired O2 100.0 Tidal Volume PEEP Sodium Potassium Chloride Carbon Dioxide BUN Creatinine Est GFR ( Amer) Est GFR (Non-Af Amer) BUN/Creatinine Ratio Glucose POC Glucose 125 H Est Mean Plasma Glucose Hemoglobin A1c Calculated Osmolality Lactic Acid Calcium Phosphorus Magnesium Total Bilirubin AST ALT Alkaline Phosphatase Troponin I B-Natriuretic Peptide 2227 H Serum Total Protein Albumin Globulin Albumin/Globulin Ratio Triglycerides Cholesterol LDL Cholesterol, Calc VLDL Cholesterol, Calc HDL Cholesterol Cholesterol/HDL Ratio Lipase Ethyl Alcohol 09/02/18 09/02/18 09/02/18 14:42 14:42 14:42 WBC 15.4 H RBC 5.64 H Hgb 19.0 H Hct 55.4 H MCV 98.2 MCH 33.7 H MCHC 34.3 RDW 12.1 Plt Count 246 MPV 10.9 Immature Gran % 1.3 Seg Neutrophils % 55.3 Lymphocytes % 35.9 Monocytes % 6.4 Eosinophils % 0.4 Basophils % 0.7 Neutrophils # 8.5 Lymphocytes # 5.5 H Monocytes # 1.0 Eosinophils # 0.1 Basophils # 0.1 PT 10.7 INR 1.0 APTT 31.1 Heparin Anti-Xa, Unfract Sample Site ABG pH ABG pCO2 ABG pO2 ABG HCO3 ABG Total CO2 ABG O2 Saturation ABG Base Excess [place] Test Respiration Rate O2 Delivery Device Blood Gas Modality Inspired O2 Tidal Volume PEEP Sodium 130 L Potassium 3.9 Chloride 93 L Carbon Dioxide 20 L BUN 17 Creatinine 1.10 Est GFR ( Amer) > 60 Est GFR (Non-Af Amer) > 60 BUN/Creatinine Ratio 15 Glucose 167 H POC Glucose Est Mean Plasma Glucose Hemoglobin A1c Calculated Osmolality 275 L Lactic Acid Calcium 9.6 Phosphorus Magnesium Total Bilirubin AST ALT Alkaline Phosphatase Troponin I 1.14 H* B-Natriuretic Peptide Serum Total Protein Albumin Globulin Albumin/Globulin Ratio Triglycerides Cholesterol LDL Cholesterol, Calc VLDL Cholesterol, Calc HDL Cholesterol Cholesterol/HDL Ratio Lipase 82 Ethyl Alcohol 62 H - Impressions ITS Impressions Chest X-Ray 09/02/18 00:00 IMPRESSION: Endotracheal tube tip is approximately 1.6 cm above the ines. Otherwise stable chest from earlier today. D/ / Aretha Adams MD / Aretha Adams MD Interpreting Provider: Aretha Adams MD Chest X-Ray 09/02/18 14:25 IMPRESSION: Bilateral airspace disease, most likely secondary to pulmonary edema and/or pneumonia. Radiographic follow-up to document resolution is recommended. D/ / Francisco J Palacio MD / Francisco J Palacio MD Interpreting Provider: Francisco J Palacio MD Abdomen/Pelvis CTA 09/02/18 15:39 IMPRESSION: 1. Pulmonary edema and small pleural effusions. 2. Lesion in the pancreatic tail. Differential includes acute pancreatitis versus pancreatic mass. 3. 3.4 cm saccular aneurysm of the infrarenal abdominal aorta. 4. 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 5. Multiple other moderate arterial stenoses throughout the chest, abdomen and pelvis as above. 6. 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 7. No acute aortic abnormality. 8. No large pulmonary embolus. RECOMMENDATIONS: Consider nonemergent pancreatic mass protocol MRI with contrast. Managing Abdominal Aortic Aneurysms Recommend repeat imaging every 3 years. Reference: J Vasc Surg. 2008;50(4 Suppl):S2-49 D/ /02/2018 18:30:25 Eros Baez MD / lgray Interpreting Provider: Eros Baez MD Chest CTA 09/02/18 15:39 IMPRESSION: 1. Pulmonary edema and small pleural effusions. 2. Lesion in the pancreatic tail. Differential includes acute pancreatitis versus pancreatic mass. 3. 3.4 cm saccular aneurysm of the infrarenal abdominal aorta. 4. 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 5. Multiple other moderate arterial stenoses throughout the chest, abdomen and pelvis as above. 6. 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 7. No acute aortic abnormality. 8. No large pulmonary embolus. RECOMMENDATIONS: Consider nonemergent pancreatic mass protocol MRI with contrast. Managing Abdominal Aortic Aneurysms Recommend repeat imaging every 3 years. Reference: J Vasc Surg. 2008;50(4 Suppl):S2-49 D/ /02/2018 18:30:25 Eros Baez MD / lgray Interpreting Provider: Eros Baez MD Chest X-Ray 09/03/18 08:22 IMPRESSION: Interval increase in interstitial opacities and small effusions, which may represent developing edema. Endotracheal tube terminates in appropriate position above the ines. The enteric tube is coiled in the body of the stomach. D/ / Celso Delgado / Celso Delgado Interpreting Provider: Celso Delgado Date of admission: 09/02/18 19:36 Primary care physician: PCP NONE Consults: 09/02/18 20:38 Consult to Critical Care [CONS] Routine Consulting Provider: Pulm Crit [facility] Sleep Aidee Reason for Consult: vent managment Call Completed: Yes 09/03/18 01:14 Consult to Cardiology [CONS] Routine Comment: Consulting Provider: Cardiology Aidee Reason for Consult: Elevated troponin/Pulmonary edema Call Completed: Yes Discharging clinician: Emelia Mak Anticipated date of discharge: 09/03/18 - Patient Status Functional capacity at discharge: bed bound Overall status at discharge: patient is not back to baseline - Diet and Activity Activity: other (remain intubated and sedated) Diet: other (NPO) - Hospital Course Hospital course: 63 M with little known medical history was intubated and transferred to ICU overnight after admitted for ACS with acute heart failure. On 09-02-18 came to ED complaining for shortness of breath with tachycardia 128 and oxygen stat 98% but severe work of breathing necessitated intubation by ED. Chest X-ray showed pulmonary edema and he was started on nitroglycerin drip and IV lasix. ABG severe acidosis with pH 7.17 improved after intubation to 7.25. Elevated troponins 1.14 and BNP 2227 with Cardiology was consulted and advised he be placed on heparin drip. Initially hypertensive when he was sedated with profolol and continued nitroglycerin but became hypotension and did not improve with 2L thus started on levophed. Concerned for cardiogenic shock due to possible ACS with elevated troponin and EKG changes of ST elevation; troponin trended 1.14, 3.71, and 3.66 and lactic acid 3.1 to 1.7 with aggressive hydration. Continues intubated, sedated and on pressores with norepi, predecex and fentyal. Echo 09-03-18 showed EF of 10%. Cardiology consulted and consider subacute EtOH cardiomyopathy vs severe triple vessel disease. The advise transfer to advanced heart failure center for urgent intervention of treatment for volume overload with severe LV dysfunction. May need possible LHC once stable CTA chest/ ab/pelvis showed pulmonary edema with small effusions, pancreatic mass, infrarenal abdominal aortic aneurysm and multiple moderate arterial stenosis including inferior mesenteric and bilateral iliac artery stenosis. Positive blood EtOH on admit with history of chronic alcohol abuse thus CIWAS p rotocol with Ativan and precedx. Pancreatic mass but no acute pancreatisis with normal lipase. - Time Spent with Patient Total time spent providing and/or coordinating discharge services: Greater than 30 minutes Physical Examination Vital Signs: Vital Signs, Last 4 Hours Temp Pulse Resp BP Pulse Ox 09/03/18 09:00 79 16 110/65 96 09/03/18 08:16 96.4 F L 09/03/18 08:04 19 96/58 97 09/03/18 08:00 80 09/03/18 07:00 78 19 106/60 96 09/03/18 06:06 27 121/66 94 09/03/18 06:00 73 16 102/61 96 General appearance: no acute distress, comatose Eyes: nonicteric ENT: oropharynx dry Effort: mildly labored Auscultation: bilateral: rales Cardiovascular: regular rate and rhythm Gastrointestinal: normoactive bowel sounds, soft, non-tender Integumentary: normal Extremities: no cyanosis, no edema Musculoskeletal: no deformities unable to assess due to mental status
[2018-09-03 10:49] LABS: BUN/Creatinine Ratio 18 (6-26); Blood Urea Nitrogen 21 mg/dL (8-23); Calcium 6.4 mg/dL (8.6-10.3); Carbon Dioxide 20 mEq/L (23-29); Chloride 104 mEq/L (98-107); Glucose 171 mg/dL (70-105); Magnesium 1.8 mg/dL (1.6-2.6); Osmolality,Calculated 277 (280-300); Potassium 4.3 mEq/L (3.5-5.1); Sodium 130 mEq/L (136-145); eGFR For Non-African Americans > 60 (> 60)
[2018-09-03 11:43] VITALS: BP 104/84
[2018-09-03] MEDS ORDERED: *HR* Rocuronium Bromide 100 MG/10 ML VIAL IVC ONE (12:25)
[2018-09-03] MEDS ORDERED: *HR* Etomidate 40 MG/20 ML VIAL IVP ONE (12:25)
--- NOTE | 2018-09-03 13:53 | Event Note ---
Date of Encounter: 09/03/18 Time of Encounter: 13:48 Patient seen and examined early this morning. Case discussed with nursing as well as the ICU. Echocardiogram reviewed, which demonstrated an LVEF of 10-15%, global hypokinesis. Troponin elevation noted. Significant peripheral arterial disease noted on imaging and ECG abnormal, both concerning associations with underlying significant CAD. Significant history of alcohol abuse as well, which could also be contributing to severe LV dysfunction. Given patient's very severe cardiac dysfunction, requirement for vasopressors, and respiratory failure requiring ventilatory support - I recommended transfer to a tertiary center for further evaluation and treatment. Should his condition continue to deteriorate, advanced heart failure support could be provided. I explained all of this to the patient's , who voiced understanding and was in agreement for transfer. All questions were answered.
[2018-09-03] MEDS ORDERED: Thiamine (B-1) 100 MG, Folic Acid 1 MG, MVI, adult with vitamin K 10 ML in 0.9 % Sodi... IVPB SCH (18:00)
--- NOTE | 2018-09-05 21:57 | Electrocardiograph Report ---
[address] [place], [place] [address] Test Date: 2018-09-02 Pat Name: Pedrito Kc Department: [id number] Room: 07 Gender: M Or Assistant: : 1955 Requested By: Dwaine Palmer Order Number: [id number] Reading MD: Tarsha Stockton Measurements Intervals [place] Rate: 124 P: 72 ID: [id number] QRS: 98 QRSD: 110 T: -49 QT: 312 QTc: 449 Interpretive Statements Technically poor tracing - please repeat ECG Sinus tachycardia with PACs Right axis deviation Intraventricular conduction delay Right ventricular hypertrophy T wave abnormalities, consider ischemia Electronically Signed On 09-05-2018 21:55:49 EST by Tarsha Stockton
--- NOTE | 2018-09-05 22:00 | Electrocardiograph Report ---
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
--- NOTE | 2018-09-05 22:15 | Electrocardiograph Report ---
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
--- NOTE | 2018-09-05 22:27 | Electrocardiograph Report ---
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
== END 2018-09-03 12:26 | disposition critical access hospital (66) | DRG 280 ==
LOC: EMEROOARM 14:23 → ICNU 19:36
PROVIDERS: ADMIT Internal Medicine; ATTEND Internal Medicine